=== PATIENT | female | born 1990 | race Caucasian/White ===

== ENCOUNTER 2020-03-24 21:07 | Inpatient (IN) | payer OTHER, SELFPAY ==
--- NOTE | 2020-03-24 21:17 | XR_ITS ---
WS: [id number] PORTABLE CHEST HISTORY: Positive Covid. Chest pain. COMPARISON: 05/30/2019 Lungs are slightly hyperinflated with mild haziness. No dense consolidation. No pleural effusion or p neumothorax. Cardiac size: Continued and increasing enlargement of the cardiac silhouette. Suspect pericardial eff usion. Mediastinum/Aorta: Normal mediastinum. No osseous abnormality seen. XR/XR chest 1V portable [id number] IMPRESSION: Increasing cardiac silhouette size. Suspect pericardial effusion. Mild interstitial haziness.
[2020-03-24 21:55] VITALS: BP 264/164; PULSE 120; RESP 22; TEMP 37.9; O2SAT 97; BMI 43.0
--- NOTE | 2020-03-24 22:52 | CTR_ITS ---
PROCEDURE INFORMATION: Exam: CT Head Without Contrast Exam date and time: 03/24/2020 11:12 PM Age: 29 years old Clinical indication: Pain; Headache; Patient HX: Covid +; Additional info: Elevated blood pressure TECHNIQUE: Imaging protocol: Computed tomography of the head without contrast. Radiation optimization: All CT scans at this facility use at least one of these dose optimization techniques: automated exposure control; mA and/or kV adjustment per patient size (includes targeted exams where dose is matched to clinical indication); or iterative reconstruction. COMPARISON: No relevant prior studies available. RADIATION DOSE METRICS: Total DLP (mGy-cm): 779.94 FINDINGS: Brain: Normal. No hemorrhage. Unremarkable white matter. No mass effect. Cerebral ventricles: No ventriculomegaly. Bones/joints: Unremarkable. No acute fracture. Paranasal sinuses: Visualized sinuses are unremarkable. No fluid levels. Mastoid air cells: Visualized mastoid air cells are well aerated. Soft tissues: Several partially calcified subcutaneous nodules are noted in the scalp that may reflect chronic sebaceous cysts. CT/CT head wo con* [id number] IMPRESSION: No acute intracranial abnormality. Radiation Dose CTDIVOL = (mGy): DLP = 779.94 (mGy-cm)
--- NOTE | 2020-03-24 22:54 | W.ED.SOB ---
Documented by User: MICHELLE Velasco 03/24/20 23:27 HPI - SOB/Dyspnea General: Chief Complaint: Shortness of Breath/Dyspnea Stated Complaint: +COVID (IN COVID TRIAGE ROOM) Time Seen by Provider: 03/24/20 22:52 History of Present Illness: HPI Narrative: Patient is a 29-year-old female comes to the ED with fever, cough and shortness of breath. Denies any past medical history. patient was tested for COVID on Saturday and it was positive. Today she has fever, body aches and her cough is mostly dry but occasionally she gets up some clear phlegm. Patient started having some diarrhea today. She describes her shortness of breath as chest tightness. Endorses having some wheezing. Patient also has elevated blood pressure. She denies any neurological symptoms such as vision changes, numbness weakness or tingling to extremities or face. She does say she has a mild headache currently. Associated symptoms: Reports diaphoresis and fever(s); Deny abdominal pain, chest pain, nausea, orthopnea, palpitations or vomiting Review of Systems Const: Reports: fever(s), body aches and diaphoresis; Denies: chills or fatigue Eyes: Denies: change in vision or eye discomfort ENMT: Denies: throat pain, odynophagia, nasal discharge or nasal congestion Card: Denies: chest pain, palpitations, edema, swelling of feet/ankles, dyspnea on exertion or orthopnea Resp: Reports: dyspnea, productive cough and wheezing; Denies: non-productive cough GI: Denies: abdominal pain, nausea, vomiting, diarrhea, constipation or hematochezia : Denies: flank pain, dysuria or hematuria Musc: Denies: neck pain, back pain or extremity swelling Skin/Breast: Denies: rash or new lesions Neuro: Reports: headache(s); Denies: numbness in extremities or weakness in extremities PFS ED PFSH: Medical History History of pre-eclampsia Hypertension Morbid obesity Family History Other CAD (coronary artery disease) Social History Smoking and tobacco status: current some day smoker Alcohol intake: never Substance/Drug Use: never Physical Exam Const: COMMON NORMALS: no acute distress, patient oriented x3 and alert GENERAL APPEARANCE: cooperative and diaphoretic HENMT: COMMON NORMALS: normocephalic HEAD & SCALP: normocephalic MOUTH: Normal oral and palatal mucosa present THROAT: posterior oropharynx normal and uvula midline Eye: COMMON NORMALS: Equal, round and reactive pupils present, EOMs intact bilaterally, conjunctivae normal and normal visual torres by confrontation CONJUNCTIVA: Yes conjunctivae normal PUPIL: Yes Equal, round and reactive pupils present Neck/C-Spine: COMMON NORMALS: supple GENERAL: Yes normal visual inspection Resp: COMMON NORMALS: normal respiratory effort, No retractions and No use of accessory muscles AUSCULTATION: crackles Laterality: right (Posterior base-light crackles heard) Cardio: COMMON NORMALS: regular rate, regular rhythm, S1 normal heart sound present, S2 normal heart sound present, No gallops present (Cardio), No clicks present (Cardio), No murmurs present (Cardio) and Peripheral pulses 2+ throughout RATE: regular rate RHYTHM: regular rhythm HEART SOUNDS: S1 normal heart sound present and S2 normal heart sound present PERIPHERAL PULSES: Peripheral pulses 2+ throughout GI: COMMON NORMALS: Normal to inspection, nondistended, normoactive bowel sounds present, Soft to palpation, non-tender and no masses PALPATION: Yes Soft to palpation : COMMON NORMALS: Yes no CVA tenderness BLADDER/KIDNEY EXAM: Yes no CVA tenderness Back/Pelvis: COMMON NORMALS: no CVA tenderness Extremity: COMMON NORMALS: normal to inspection, capillary refill normal and no pedal edema Neuro: COMMON NORMALS: patient oriented x3, CN's II-XII intact bilaterally, moves all extremities, no focal motor deficits and no sensory deficits noted SENSORIUM/ORIENTATION: Yes alert SENSORY EXAM: Yes extremities (intact) MOTOR EXAM: 5/5 motor strength present throughout Skin: COMMON NORMALS: no rashes or lesions noted NARRATIVE SKIN EXAM: Diaphoresis on face and skin on arms to the touch. GENERAL SKIN EXAM: no rashes or lesions noted Course Vital Signs: Vital signs: Vital Signs Temperature 100.3 F H 03/24/20 21:55 Pulse Rate 104 H 03/25/20 03:41 Respiratory Rate 20 H 03/25/20 03:41 Blood Pressure 188/106 03/25/20 03:41 Pulse Oximetry 91 03/25/20 03:41 MDM - SOB/Dyspnea MDM Narrative: Medical decision making narrative: I performed the initial history physical exam lab and imaging work-up of patient. I discussed patient case with Dr. Gaston and told him about patient's vitals of blood pressure 264/164, pulse 120, respirations 22, temp 100.3 and O2 sat 97% on room air. Dr. Gaston recommended that he take over patient care due to complexity and likely admission. Patient signed out to Dr. Gaston. Lab Data: Labs: Lab Results 03/24/20 03/24/20 03/24/20 Range/Units 00:15 23:30 23:33 WBC 8.8 (4.0-10.0) 10^3/ uL RBC 4.61 (4.1-5.3) 10^6/u L Hgb 11.5 (11.5-15.3) g/dL Hct 38.0 (37.0-47.0) % MCV 82.4 (81-99) fL MCH 24.9 L (28.0-34.0) pg MCHC 30.3 (30.0-36.0) g/dL RDW 15.3 H (12.1-15.1) % Plt Count 293 (130-400) 10^3/c mm MPV 11.2 H (7.4-10.4) fL Neut % (Auto) 80.4 % Lymph % (Auto) 9.1 % Summit % (Auto) 7.2 % Eos % (Auto) 2.3 % Baso % (Auto) 0.5 % Neut # (Auto) 7.11 (1.8-7.7) 10^3/u L Lymph # (Auto) 0.8 (0.8-4.8) 10^3/u L Summit # (Auto) 0.6 (0.2-0.9) 10^3/u L Eos # (Auto) 0.2 (0.0-0.8) 10^3/u L Baso # (Auto) 0.0 (0.0-0.1) 10^3/u L Nucleated RBC % (a uto) 0 % Nucleated RBCs # 0.0 /100WBC Fibrinogen (174-498) mg/dL D-Dimer (0-0.59) ug/mIFE U Specimen Type Arterial Sample Site Radial, right ABG pH 7.45 (7.35-7.45) ABG pCO2 32.4 L (35-45) mmHg ABG pO2 74.1 L (80.0-100.0) mmH g ABG HCO3 22.3 (22-26) mmol/L ABG Base Excess -1.1 (-2.0-2.0) mmol/ L Boris Test Pos Hematocrit 33.8 L (37-47) % O2 Delivery Device Room air FiO2 21.0 % Turner In ID Harkr Sodium (136-145) mmol/L Potassium (3.5-5.1) mmol/L Chloride (98-107) mmol/L Carbon Dioxide (22-29) mmol/L Anion Gap (5-19) BUN (6-20) mg/dL Creatinine (0.5-0.9) mg/dL GFR Calculation (90-130) mL/min Glucose (65-115) mg/dL Calculated Osmolal ity (285-295) mOsm/k g Lactic Acid (0.5-2.2) mmol/L Calcium (8.5-10.5) mg/dL Ferritin (15-150) ng/mL Total Bilirubin (0.15-1.2) mg/dL AST (0-32) U/L ALT (0-33) U/L Alkaline Phosphata se (35-105) IU/L Troponin T Baselin e 30 H (0-10) ng/L Troponin T 120 [place] (0-10) ng/L Delta Troponin T (0-10) ABS# NT-Pro-B Natriuret Pep (0-125) pg/mL Total Protein (6.6-8.7) g/dL Albumin (3.5-5.2) g/dL Globulin (1.3-4.6) g/dL Procalcitonin (0-0.5) ng/mL HCG, Qual (Negative) 03/24/20 03/24/20 03/24/20 Range/Units 23:33 23:33 23:33 WBC (4.0-10.0) 10^3/ uL RBC (4.1-5.3) 10^6/u L Hgb (11.5-15.3) g/dL Hct (37.0-47.0) % MCV (81-99) fL MCH (28.0-34.0) pg MCHC (30.0-36.0) g/dL RDW (12.1-15.1) % Plt Count (130-400) 10^3/c mm MPV (7.4-10.4) fL Neut % (Auto) % Lymph % (Auto) % Summit % (Auto) % Eos % (Auto) % Baso % (Auto) % Neut # (Auto) (1.8-7.7) 10^3/u L Lymph # (Auto) (0.8-4.8) 10^3/u L Summit # (Auto) (0.2-0.9) 10^3/u L Eos # (Auto) (0.0-0.8) 10^3/u L Baso # (Auto) (0.0-0.1) 10^3/u L Nucleated RBC % (a uto) % Nucleated RBCs # /100WBC Fibrinogen 418 (174-498) mg/dL D-Dimer 1.82 H (0-0.59) ug/mIFE U Specimen Type Sample Site ABG pH (7.35-7.45) ABG pCO2 (35-45) mmHg ABG pO2 (80.0-100.0) mmH g ABG HCO3 (22-26) mmol/L ABG Base Excess (-2.0-2.0) mmol/ L Boris Test Hematocrit (37-47) % O2 Delivery Device FiO2 % Turner In ID Sodium 136 (136-145) mmol/L Potassium 3.9 (3.5-5.1) mmol/L Chloride 102 (98-107) mmol/L Carbon Dioxide 21 L (22-29) mmol/L Anion Gap 16.9 (5-19) BUN 17 (6-20) mg/dL Creatinine 1.2 H (0.5-0.9) mg/dL GFR Calculation 52.7 L (90-130) mL/min Glucose 114 (65-115) mg/dL Calculated Osmolal ity 284 L (285-295) mOsm/k g Lactic Acid (0.5-2.2) mmol/L Calcium 8.7 (8.5-10.5) mg/dL Ferritin 64 (15-150) ng/mL Total Bilirubin 0.5 (0.15-1.2) mg/dL AST 17 (0-32) U/L ALT 26 (0-33) U/L Alkaline Phosphata se 81 (35-105) IU/L Troponin T Baselin e (0-10) ng/L Troponin T 120 [place] (0-10) ng/L Delta Troponin T (0-10) ABS# NT-Pro-B Natriuret Pep (0-125) pg/mL Total Protein 6.0 L (6.6-8.7) g/dL Albumin 4.0 (3.5-5.2) g/dL Globulin 2.0 (1.3-4.6) g/dL Procalcitonin 0.12 (0-0.5) ng/mL HCG, Qual Negative (Negative) 03/24/20 03/24/20 03/25/20 Range/Units 23:33 23:33 02:15 WBC (4.0-10.0) 10^3/ uL RBC (4.1-5.3) 10^6/u L Hgb (11.5-15.3) g/dL Hct (37.0-47.0) % MCV (81-99) fL MCH (28.0-34.0) pg MCHC (30.0-36.0) g/dL RDW (12.1-15.1) % Plt Count (130-400) 10^3/c mm MPV (7.4-10.4) fL Neut % (Auto) % Lymph % (Auto) % Summit % (Auto) % Eos % (Auto) % Baso % (Auto) % Neut # (Auto) (1.8-7.7) 10^3/u L Lymph # (Auto) (0.8-4.8) 10^3/u L [place] # (Auto) (0.2-0.9) 10^3/u L Eos # (Auto) (0.0-0.8) 10^3/u L Baso # (Auto) (0.0-0.1) 10^3/u L Nucleated RBC % (a uto) % Nucleated RBCs # /100WBC Fibrinogen (174-498) mg/dL D-Dimer (0-0.59) ug/mIFE U Specimen Type Sample Site ABG pH (7.35-7.45) ABG pCO2 (35-45) mmHg ABG pO2 (80.0-100.0) mmH g ABG HCO3 (22-26) mmol/L ABG Base Excess (-2.0-2.0) mmol/ L Boris Test Hematocrit (37-47) % O2 Delivery Device FiO2 % Turner In ID Sodium (136-145) mmol/L Potassium (3.5-5.1) mmol/L Chloride (98-107) mmol/L Carbon Dioxide (22-29) mmol/L Anion Gap (5-19) BUN (6-20) mg/dL Creatinine (0.5-0.9) mg/dL GFR Calculation (90-130) mL/min Glucose (65-115) mg/dL Calculated Osmolal ity (285-295) mOsm/k g Lactic Acid 0.8 (0.5-2.2) mmol/L Calcium (8.5-10.5) mg/dL Ferritin (15-150) ng/mL Total Bilirubin (0.15-1.2) mg/dL AST (0-32) U/L ALT (0-33) U/L Alkaline Phosphata se (35-105) IU/L Troponin T Baselin e (0-10) ng/L Troponin T 120 [place] 25.89 H (0-10) ng/L Delta Troponin T -4.11 L (0-10) ABS# NT-Pro-B Natriuret Pep 4025 H (0-125) pg/mL Total Protein (6.6-8.7) g/dL Albumin (3.5-5.2) g/dL Globulin (1.3-4.6) g/dL Procalcitonin (0-0.5) ng/mL HCG, Qual (Negative) Discharge Plan Discharge Patient Disposition: Placed in Observation Clinical Impression: Hypertensive urgency, COVID-19 Condition: Stable Referrals: Ce Grimaldo MD [Family Provider] - Sign Out Sign Out Data: Patient Sign Out occurred on 03/24/20 at 23:39. Patient's care was discussed, and care was transferred from to [facility]. Coding Level of Care Code ED Locomotive Mechanic for Chg Fwd Exam Comprehensive Documented by User: Helen Blake Marilin 03/25/20 03:53 HPI - SOB/Dyspnea General: Chief Complaint: Shortness of Breath/Dyspnea Stated Complaint: +COVID (IN COVID TRIAGE ROOM) Time Seen by Provider: 03/24/20 22:52 PFSH ED PFSH: Medical History History of pre-eclampsia Hypertension Morbid obesity Family History Other CAD (coronary artery disease) Social History Smoking and tobacco status: current some day smoker Alcohol intake: never Substance/Drug Use: never Course Vital Signs: Vital signs: Vital Signs Temperature 100.3 F H 03/24/20 21:55 Pulse Rate 104 H 03/25/20 03:41 Respiratory Rate 20 H 03/25/20 03:41 Blood Pressure 188/106 03/25/20 03:41 Pulse Oximetry 91 03/25/20 03:41 MDM - SOB/Dyspnea MDM Narrative: Medical decision making narrative: Eladio is a very nice 29-year-old female who comes in complaining of COVID symptoms. From a covert perspective the patient looks stable but she is severely hypertensive. She has market cardiomegaly on her chest x-ray and necessitated Cardene to get her blood pressure under control here. Patient is noncompliant with her blood pressure medicines at home. Because of this patient be admitted to the hospital and I have endorsed the case to Dr. Adan. He agrees to admit for further evaluation and care. Lab Data: Attestation: I reviewed the patient's lab results. Labs: Lab Results 03/24/20 03/24/20 03/24/20 Range/Units 00:15 23:30 23:33 WBC 8.8 (4.0-10.0) 10^3/ uL RBC 4.61 (4.1-5.3) 10^6/u L Hgb 11.5 (11.5-15.3) g/dL Hct 38.0 (37.0-47.0) % MCV 82.4 (81-99) fL MCH 24.9 L (28.0-34.0) pg MCHC 30.3 (30.0-36.0) g/dL RDW 15.3 H (12.1-15.1) % Plt Count 293 (130-400) 10^3/c mm MPV 11.2 H (7.4-10.4) fL Neut % (Auto) 80.4 % Lymph % (Auto) 9.1 % [place] % (Auto) 7.2 % Eos % (Auto) 2.3 % Baso % (Auto) 0.5 % Neut # (Auto) 7.11 (1.8-7.7) 10^3/u L Lymph # (Auto) 0.8 (0.8-4.8) 10^3/u L Summit # (Auto) 0.6 (0.2-0.9) 10^3/u L Eos # (Auto) 0.2 (0.0-0.8) 10^3/u L Baso # (Auto) 0.0 (0.0-0.1) 10^3/u L Nucleated RBC % (a uto) 0 % Nucleated RBCs # 0.0 /100WBC Fibrinogen (174-498) mg/dL D-Dimer (0-0.59) ug/mIFE U Specimen Type Arterial Sample Site Radial, right ABG pH 7.45 (7.35-7.45) ABG pCO2 32.4 L (35-45) mmHg ABG pO2 74.1 L (80.0-100.0) mmH g ABG HCO3 22.3 (22-26) mmol/L ABG Base Excess -1.1 (-2.0-2.0) mmol/ L Boris Test Pos Hematocrit 33.8 L (37-47) % O2 Delivery Device Room air FiO2 21.0 % Turner In ID Harkr Sodium (136-145) mmol/L Potassium (3.5-5.1) mmol/L Chloride (98-107) mmol/L Carbon Dioxide (22-29) mmol/L Anion Gap (5-19) BUN (6-20) mg/dL Creatinine (0.5-0.9) mg/dL GFR Calculation (90-130) mL/min Glucose (65-115) mg/dL Calculated Osmolal ity (285-295) mOsm/k g Lactic Acid (0.5-2.2) mmol/L Calcium (8.5-10.5) mg/dL Ferritin (15-150) ng/mL Total Bilirubin (0.15-1.2) mg/dL AST (0-32) U/L ALT (0-33) U/L Alkaline Phosphata se (35-105) IU/L Troponin T Baselin e 30 H (0-10) ng/L Troponin T 120 [place] (0-10) ng/L Delta Troponin T (0-10) ABS# NT-Pro-B Natriuret Pep (0-125) pg/mL Total Protein (6.6-8.7) g/dL Albumin (3.5-5.2) g/dL Globulin (1.3-4.6) g/dL Procalcitonin (0-0.5) ng/mL HCG, Qual (Negative) 03/24/20 03/24/20 03/24/20 Range/Units 23:33 23:33 23:33 WBC (4.0-10.0) 10^3/ uL RBC (4.1-5.3) 10^6/u L Hgb (11.5-15.3) g/dL Hct (37.0-47.0) % MCV (81-99) fL MCH (28.0-34.0) pg MCHC (30.0-36.0) g/dL RDW (12.1-15.1) % Plt Count (130-400) 10^3/c mm MPV (7.4-10.4) fL Neut % (Auto) % Lymph % (Auto) % [place] % (Auto) % Eos % (Auto) % Baso % (Auto) % Neut # (Auto) (1.8-7.7) 10^3/u L Lymph # (Auto) (0.8-4.8) 10^3/u L Summit # (Auto) (0.2-0.9) 10^3/u L Eos # (Auto) (0.0-0.8) 10^3/u L Baso # (Auto) (0.0-0.1) 10^3/u L Nucleated RBC % (a uto) % Nucleated RBCs # /100WBC Fibrinogen 418 (174-498) mg/dL D-Dimer 1.82 H (0-0.59) ug/mIFE U Specimen Type Sample Site ABG pH (7.35-7.45) ABG pCO2 (35-45) mmHg ABG pO2 (80.0-100.0) mmH g ABG HCO3 (22-26) mmol/L ABG Base Excess (-2.0-2.0) mmol/ L Boris Test Hematocrit (37-47) % O2 Delivery Device FiO2 % Turner In ID Sodium 136 (136-145) mmol/L Potassium 3.9 (3.5-5.1) mmol/L Chloride 102 (98-107) mmol/L Carbon Dioxide 21 L (22-29) mmol/L Anion Gap 16.9 (5-19) BUN 17 (6-20) mg/dL Creatinine 1.2 H (0.5-0.9) mg/dL GFR Calculation 52.7 L (90-130) mL/min Glucose 114 (65-115) mg/dL Calculated Osmolal ity 284 L (285-295) mOsm/k g Lactic Acid (0.5-2.2) mmol/L Calcium 8.7 (8.5-10.5) mg/dL Ferritin 64 (15-150) ng/mL Total Bilirubin 0.5 (0.15-1.2) mg/dL AST 17 (0-32) U/L ALT 26 (0-33) U/L Alkaline Phosphata se 81 (35-105) IU/L Troponin T Baselin e (0-10) ng/L Troponin T 120 [place] (0-10) ng/L Delta Troponin T (0-10) ABS# NT-Pro-B Natriuret Pep (0-125) pg/mL Total Protein 6.0 L (6.6-8.7) g/dL Albumin 4.0 (3.5-5.2) g/dL Globulin 2.0 (1.3-4.6) g/dL Procalcitonin 0.12 (0-0.5) ng/mL HCG, Qual Negative (Negative) 03/24/20 03/24/20 03/25/20 Range/Units 23:33 23:33 02:15 WBC (4.0-10.0) 10^3/ uL RBC (4.1-5.3) 10^6/u L Hgb (11.5-15.3) g/dL Hct (37.0-47.0) % MCV (81-99) fL MCH (28.0-34.0) pg MCHC (30.0-36.0) g/dL RDW (12.1-15.1) % Plt Count (130-400) 10^3/c mm MPV (7.4-10.4) fL Neut % (Auto) % Lymph % (Auto) % [place] % (Auto) % Eos % (Auto) % Baso % (Auto) % Neut # (Auto) (1.8-7.7) 10^3/u L Lymph # (Auto) (0.8-4.8) 10^3/u L [place] # (Auto) (0.2-0.9) 10^3/u L Eos # (Auto) (0.0-0.8) 10^3/u L Baso # (Auto) (0.0-0.1) 10^3/u L Nucleated RBC % (a uto) % Nucleated RBCs # /100WBC Fibrinogen (174-498) mg/dL D-Dimer (0-0.59) ug/mIFE U Specimen Type Sample Site ABG pH (7.35-7.45) ABG pCO2 (35-45) mmHg ABG pO2 (80.0-100.0) mmH g ABG HCO3 (22-26) mmol/L ABG Base Excess (-2.0-2.0) mmol/ L Boris Test Hematocrit (37-47) % O2 Delivery Device FiO2 % Turner In ID Sodium (136-145) mmol/L Potassium (3.5-5.1) mmol/L Chloride (98-107) mmol/L Carbon Dioxide (22-29) mmol/L Anion Gap (5-19) BUN (6-20) mg/dL Creatinine (0.5-0.9) mg/dL GFR Calculation (90-130) mL/min Glucose (65-115) mg/dL Calculated Osmolal ity (285-295) mOsm/k g Lactic Acid 0.8 (0.5-2.2) mmol/L Calcium (8.5-10.5) mg/dL Ferritin (15-150) ng/mL Total Bilirubin (0.15-1.2) mg/dL AST (0-32) U/L ALT (0-33) U/L Alkaline Phosphata se (35-105) IU/L Troponin T Baselin e (0-10) ng/L Troponin T 120 [place] 25.89 H (0-10) ng/L Delta Troponin T -4.11 L (0-10) ABS# NT-Pro-B Natriuret Pep 4025 H (0-125) pg/mL Total Protein (6.6-8.7) g/dL Albumin (3.5-5.2) g/dL Globulin (1.3-4.6) g/dL Procalcitonin (0-0.5) ng/mL HCG, Qual (Negative) Imaging Data^: CXR: Attestation: I personally reviewed and interpreted this imaging study as follows: My impression: Significant cardiomegaly but no evidence of definitive pulmonary vascular congestion or infiltrates. CT Head: Radiologist's impression: [place] [address] CT Scan Report Signed Patient: Lashon Contreras #: [id number] : 1990Acct#:[id number] Age/Sex: 29 / FADM Date: 03/24/20 Loc: ERRoom/Bed: Attending Dr: Ordering Provider/Ordering MD: Ascencion Castillo Date of Service: 03/24/20 Procedure(s): CT head wo con* [id number] Accession Number(s): [id number] Report Number: [id number] PROCEDURE INFORMATION: Exam: CT Head Without Contrast Exam date and time: 03/24/2020 11:12 PM Age: 29 years old Clinical indication: Pain; Headache; Patient HX: Covid +; Additional info: Elevated blood pressure TECHNIQUE: Imaging protocol: Computed tomography of the head without contrast. Radiation optimization: All CT scans at this facility use at least one of these dose optimization techniques: automated exposure control; mA and/or kV adjustment per patient size (includes targeted exams where dose is matched to clinical indication); or iterative reconstruction. COMPARISON: No relevant prior studies available. RADIATION DOSE METRICS: Total DLP (mGy-cm): 779.94 FINDINGS: Brain: Normal. No hemorrhage. Unremarkable white matter. No mass effect. Cerebral ventricles: No ventriculomegaly. Bones/joints: Unremarkable. No acute fracture. Paranasal sinuses: Visualized sinuses are unremarkable. No fluid levels. Mastoid air cells: Visualized mastoid air cells are well aerated. Soft tissues: Several partially calcified subcutaneous nodules are noted in the scalp that may reflect chronic sebaceous cysts. CT/CT head wo con* [id number] IMPRESSION: No acute intracranial abnormality. Radiation Dose CTDIVOL = (mGy): DLP = 779.94 (mGy-cm) Dictated By:Charley Van Signed By:Jono Van Date/Time:03/24/202336 DD/ 35 CT Chest: Radiologist's impression: [address] [address] [address] Scan Report Signed Patient: Eladio Contreras Unit #: [id number] : 1990 Age/Sex: 29 / F ADM Date: 03/24/20 Loc: ER Room/Bed: Attending Dr: Ordering Provider/Ordering MD: Helen Gaston DO Date of Service: 03/25/20 Procedure(s): CT angio chest PE protcl [id number] Accession Number(s): [id number] Report Number: [id number] PROCEDURE INFORMATION: Exam: CT Angiography Chest With Contrast Exam date and time: 03/25/2020 2:04 AM Age: 29 years old Clinical indication: Shortness of breath; Patient HX: Covid+; Additional info: Dyspnea, positive d-dimer TECHNIQUE: Imaging protocol: Computed tomographic angiography of the chest with intravenous contrast. 3D rendering (Not supervised by radiologist): MIP and/or 3D reconstructed images were created by the technologist. Radiation optimization: All CT scans at this facility use at least one of these dose optimization techniques: automated exposure control; mA and/or kV adjustment per patient size (includes targeted exams where dose is matched to clinical indication); or iterative reconstruction. Contrast material: VISI; Contrast volume: 78 ml; Contrast route: INTRAVENOUS (IV); COMPARISON: CTA Chest-Pulmonary Emb [id number] 04/16/2019 6:36 PM RADIATION DOSE METRICS: Total DLP (mGy-cm): 647.38 FINDINGS: Pulmonary arteries: Normal. No pulmonary emboli. Aorta: Unremarkable. No aortic aneurysm. No aortic dissection. Lungs: Scattered ground-glass infiltrates are present progress since previous exam. Pleural space: Bilateral small pleural effusions are seen, new since previous exam. Heart: Is enlarged. No cardiomegaly. Moderate amount of pericardial effusion is present increased since previous examination. Lymph nodes: Shotty mediastinal lymph nodes are present. Bones/joints: Unremarkable. No acute fracture. Soft tissues: Unremarkable. CT/CT angio chest PE protcl [id number] IMPRESSION: 1. Negative for pulmonary embolism. Negative for aortic aneurysm or dissection. 2. Ground-glass lung infiltrates showing progression consistent with COVID-19 pneumonia. 3. Moderate pericardial effusion increased since previous examination. 4. Small bilateral pleural effusions, new since previous examination. Radiation Dose CTDIVOL = (mGy): DLP = 647.38 (mGy-cm) Dictated By: Allyson Mattson Signed By: Allyson Mattson Signed Date/Time: 03/25/20347 DD/ 6 EKG Data^: EKG 1: Attestation: I personally reviewed and interpreted this EKG as follows: EKG Interpretation Date: 03/25/20 EKG interpretation time: 00:15 Interpretation: Sinus tachycardia at 101 beats a minute, LVH, T wave inversions in 1, aVL and V5 and V6. Normal axis, no blocks, normal intervals. EKG 2: Attestation: I personally reviewed and interpreted this EKG as follows: EKG Interpretation Date: 03/25/20 EKG interpretation time: 02:13 Interpretation: Normal sinus rhythm at 98 beats a minute, T wave inversions laterally including 1, aVL and V5 and V6. LVH. Discharge Plan Discharge Patient Disposition: Placed in Observation Clinical Impression: Hypertensive urgency, COVID-19 Condition: Stable Referrals: Ce Grimaldo MD [Family Provider] - Sign Out Sign Out Data: Patient Sign Out occurred on 03/24/20 at 23:39. Patient's care was discussed, and care was transferred from to Helen Gaston. 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
--- NOTE | 2020-03-24 23:17 | ECG_ITS ---
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 Measurements Intervals [place] Rate: 101 P: 30 NE: 182 QRS: 5 QRSD: 98 T: 169 QT: 355 QTc: 461 Interpretive Statements SINUS TACHYCARDIA LEFT ATRIAL ENLARGEMENT [-0.15mV P WAVE IN V1/V2] MODERATE T-WAVE ABNORMALITY, CONSIDER LATERAL ISCHEMIA [-0.1+ mV T WAVE IN I/aVL/V5/V6] Compared to ECG 05/30/2019 12:35:50 T-wave abnormality now present Possible ischemia now present Left ventricular hypertrophy no longer present ST (T wave) deviation no longer present Electronically Signed On 03-25-2020 18:52:41 CDT by Elias Reid M.D. [id number]
[2020-03-24] MEDS: sodium chloride 0.9% 1,000 ML 999 ML IV (23:41)
[2020-03-24] MEDS: acetaminophen 500 mg Tablet 1000 MG PO (23:41)
[2020-03-24 23:48] LABS: Basophils % 0.5 %; Eosinophils # 0.2 10^3/uL (0.0-0.8); Eosinophils % 2.3 %; Hemoglobin 11.5 g/dL (11.5-15.3); Lymphocytes # 0.8 10^3/uL (0.8-4.8); Lymphocytes % 9.1 %; Mean Corpuscular HGB Conc 30.3 g/dL (30.0-36.0); Mean Corpuscular Hemoglobin 24.9 pg (28.0-34.0); Mean Corpuscular Volume 82.4 fL (81-99); Mean Platelet Volume 11.2 fL (7.4-10.4); Monocytes # 0.6 10^3/uL (0.2-0.9); Monocytes % 7.2 %; Neutrophils # 7.11 10^3/uL (1.8-7.7); Neutrophils % 80.4 %; Nucleated Red Blood Cells % 0 %; Platelet Count 293 10^3/cmm (130-400); Red Blood Count 4.61 10^6/uL (4.1-5.3); Red Cell Distribution Width 15.3 % (12.1-15.1); White Blood Count 8.8 10^3/uL (4.0-10.0)
[2020-03-24 23:54] LABS: HCG, Serum Qual Negative (Negative)
[2020-03-24] MEDS: labetalol 5 mg/mL SDV 20mL 10 MG IVP (23:54)
[2020-03-25] VITALS (84 sets, daily range): BP systolic 113–203; BP diastolic 70–154; PULSE 77–125; RESP 13–33; TEMP 36.7–37.2; O2SAT 90–96; BMI 43.3
[2020-03-25 00:03] LABS: Lactic Sepsis W/Reflex 0.8 mmol/L (0.5-2.2)
[2020-03-25 00:05] LABS: Troponin(5th) Baseline 30 ng/L (0-10)
[2020-03-25 00:11] LABS: Fibrinogen 418 mg/dL (174-498)
[2020-03-25 00:13] LABS: D Dimer 1.82 ug/mIFEU (0-0.59)
[2020-03-25 00:14] LABS: Procalcitonin 0.12 ng/mL (0-0.5)
--- NOTE | 2020-03-25 00:16 | CTR_ITS ---
PROCEDURE INFORMATION: Exam: CT Angiography Chest With Contrast Exam date and time: 03/25/2020 2:04 AM Age: 29 years old Clinical indication: Shortness of breath; Patient HX: Covid+; Additional info: Dyspnea, positive d-dimer TECHNIQUE: Imaging protocol: Computed tomographic angiography of the chest with intravenous contrast. 3D rendering (Not supervised by radiologist): MIP and/or 3D reconstructed images were created by the technologist. Radiation optimization: All CT scans at this facility use at least one of these dose optimization techniques: automated exposure control; mA and/or kV adjustment per patient size (includes targeted exams where dose is matched to clinical indication); or iterative reconstruction. Contrast material: VISI; Contrast volume: 78 ml; Contrast route: INTRAVENOUS (IV); COMPARISON: CTA Chest-Pulmonary Emb [id number] 04/16/2019 6:36 PM RADIATION DOSE METRICS: Total DLP (mGy-cm): 647.38 FINDINGS: Pulmonary arteries: Normal. No pulmonary emboli. Aorta: Unremarkable. No aortic aneurysm. No aortic dissection. Lungs: Scattered ground-glass infiltrates are present progress since previous exam. Pleural space: Bilateral small pleural effusions are seen, new since previous exam. Heart: Is enlarged. No cardiomegaly. Moderate amount of pericardial effusion is present increased since previous examination. Lymph nodes: Shotty mediastinal lymph nodes are present. Bones/joints: Unremarkable. No acute fracture. Soft tissues: Unremarkable. CT/CT angio chest PE protcl [id number] IMPRESSION: 1. Negative for pulmonary embolism. Negative for aortic aneurysm or dissection. 2. Ground-glass lung infiltrates showing progression consistent with COVID-19 pneumonia. 3. Moderate pericardial effusion increased since previous examination. 4. Small bilateral pleural effusions, new since previous examination. Radiation Dose CTDIVOL = (mGy): DLP = 647.38 (mGy-cm)
[2020-03-25 00:25] LABS: Alanine Aminotransferase 26 U/L (0-33); Alkaline Phosphatase 81 IU/L (35-105); Anion Gap 16.9 (5-19); Aspartate Amino Transferase 17 U/L (0-32); Blood Urea Nitrogen 17 mg/dL (6-20); Calcium 8.7 mg/dL (8.5-10.5); Carbon Dioxide 21 mmol/L (22-29); Chloride 102 mmol/L (98-107); Ferritin 64 ng/mL (15-150); Glomerular Filtration Rate 52.7 mL/min (90-130); Glucose 114 mg/dL (65-115); Osmolality Calculated 284 mOsm/kg (285-295); Potassium 3.9 mmol/L (3.5-5.1); Sodium 136 mmol/L (136-145); Total Bilirubin 0.5 mg/dL (0.15-1.2)
[2020-03-25 00:28] LABS: ABG PCO2 32.4 mmHg (35-45); ABG PH Result 7.45 (7.35-7.45); Arterial Blood Gas Hematocrit 33.8 % (37-47); Base Excess ABG -1.1 mmol/L (-2.0-2.0); Blood Gas Allen Test Pos; Blood Gas Operator Identificat HARKR; Blood Gas Sample Site Radial, right; Blood Gas Sample Type Arterial; HCO3 ABG 22.3 mmol/L (22-26); Oxygen Device ROOM AIR; PO2 ABG 74.1 mmHg (80.0-100.0)
[2020-03-25 00:54] LABS: NT Pro B Type Natriuretic Pept 4025 pg/mL (0-125)
--- NOTE | 2020-03-25 01:17 | ECG_ITS ---
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 Measurements Intervals [place] Rate: 98 P: 17 ND: 164 QRS: -1 QRSD: 97 T: 137 QT: 364 QTc: 466 Interpretive Statements SINUS RHYTHM LEFT ATRIAL ENLARGEMENT [-0.15mV P WAVE IN V1/V2] LEFT VENTRICULAR HYPERTROPHY AND ST-T CHANGE [VOLTAGE CRITERIA PLUS ST/T ABNORMALITY] Compared to ECG 03/25/2020 00:15:25 Left ventricular hypertrophy now present ST (T wave) deviation now present Sinus tachycardia no longer present T-wave abnormality no longer present Possible ischemia no longer present Electronically Signed On 03-25-2020 19:37:38 CDT by Elias Reid M.D. [id number]
[2020-03-25] MEDS: nicardipine 20 MG/200 ML PREMIX 50 MG IV (01:22)
--- NOTE | 2020-03-25 02:16 | PM.HP ---
Providers/Chief Complaint Chief Complaint: +COVID (IN COVID TRIAGE ROOM) History of Present Illness Eladio Contreras is a 29 year old female G3, P3, history of preeclampsia, hypertension, prediabetic, recently purposely lost 30 pounds, who presents to [facility] due to fatigue, malaise, shortness of breath with exertion. 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 Patient states that she was diagnosed with hypertension, was on lisinopril, but she lost 30 pounds, and stopped taking the medication. Review of Systems Const: Reports: fever(s), chills, body aches and malaise; Denies: fatigue Eyes: Denies: change in vision or blurry vision ENMT: Denies: nasal congestion Card: Denies: chest pain or palpitations Resp: Denies: dyspnea, productive cough, non-productive cough or wheezing GI: Denies: abdominal pain, nausea, vomiting, hematemesis, diarrhea, constipation, hematochezia or melena : Denies: flank pain, dysuria or urinary frequency Musc: Denies: neck pain or back pain Skin/Breast: Denies: rash Neuro: Denies: headache(s), dizziness or vertigo Psych: Denies: anxiety or depression Endo: Denies: polyuria or polydipsia Medications/Allergies Allergies Allergy/AdvReac Type Severity Reaction Status Date / Time No Known Allergies Allergy Verified 03/24/20 23:41 PFSH Acute PFSH: Medical History History of pre-eclampsia Hypertension Morbid obesity Family History Other CAD (coronary artery disease) Social History Smoking and tobacco status: current some day smoker Alcohol intake: never Substance/Drug Use: never Vitals/I&O/Wt Last Vital Signs Temp 100.3 F H 03/24/20 21:55 Pulse 97 03/25/20 01:41 Resp 21 H 03/25/20 01:41 BP 170/83 03/25/20 01:41 Pulse Ox 93 03/25/20 01:41 Weight last 48 hrs Weight 136.078 kg Physical Exam Const: COMMON NORMALS: no acute distress and patient oriented x3 GENERAL APPEARANCE: cooperative and comfortable HENMT: COMMON NORMALS: normocephalic HEAD & SCALP: normocephalic Eye: COMMON NORMALS: Equal, round and reactive pupils present GENERAL EYE: appearance normal, both eyes and all related structures PUPIL: Yes Equal, round and reactive pupils present Neck/C-Spine: COMMON NORMALS: full ROM, no lymphadenopathy, no JVD and Thyroid normal THYROID: Thyroid normal Lymph: LYMPHATIC: no lymphadenopathy noted Resp: COMMON NORMALS: normal respiratory effort, No retractions, No use of accessory muscles and clear to auscultation bilaterally AUSCULTATION: clear to auscultation bilaterally Cardio: COMMON NORMALS: no JVD, regular rate, regular rhythm, S1 normal heart sound present, S2 normal heart sound present, No gallops present (Cardio), No clicks present (Cardio) and No murmurs present (Cardio) RATE: regular rate RHYTHM: regular rhythm HEART SOUNDS: S1 normal heart sound present and S2 normal heart sound present GI: COMMON NORMALS: Normal to inspection, nondistended, normoactive bowel sounds present, Soft to palpation, non-tender and No hepatosplenomegaly present PALPATION: Yes Soft to palpation and Yes No hepatosplenomegaly present Extremity: COMMON NORMALS: normal to inspection, full ROM and no pedal edema Neuro: COMMON NORMALS: patient oriented x3, CN's II-XII intact bilaterally, moves all extremities and no focal motor deficits Psych: COMMON NORMALS: mental status grossly normal, Normal thought process present and cooperative THOUGHT PROCESS: Normal thought process present Data : 03/24/20 23:33 03/24/20 23:33 Micro: Microbiology 03/24/20 23:33 Blood Culture - Preliminary Blood SPECIMEN COLLECTED A&P Assessment and plan (1) Hypertensive urgency: -Admit to ICU as she is on a Cardene drip -Transition off Cardene drip -Start chlorthalidone 25 mg daily -Add blood pressure medications as tolerated -Cardiac echocardiogram ordered, CT of the chest ordered -BNP 4025 -Baseline troponin 30, monitor troponins, monitor EKGs, monitor telemetry Status: Acute (2) COVID-19: -Not requiring oxygen, does have a temperature 100.3 -CT of the chest ordered -Monitor for fevers, monitor respiratory status Status: Acute (3) Acute kidney injury: -Second hypertensive urgency Status: Acute (4) Morbid obesity: Status: Acute (5) Hypertension: Status: Acute (6) No pertinent past surgical history: Status: Acute Additional A&P Information Full code Lovenox for DVT prophylaxis Attestations Medical Necessity Statement*: Patient requires hospitalization, outpatient with observation, for hypertensive urgency, COVID-19 positive Coding Level of Care Code 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
[2020-03-25] MEDS: iodixanol 320 mg/mL 100mL Btl IV (02:34)
[2020-03-25 02:48] LABS: Troponin 5 2HR 25.89 ng/L (0-10)
[2020-03-25 02:50] LABS: Troponin 5 2HR Delta -4.11 ABS# (0-10)
--- NOTE | 2020-03-25 07:26 | USCV_ITS ---
Eladio Contreras Age: 29 Gender: F : 1990 Exam Date: 03/25/2020 12:47 Ordering Phys: Josh Adan MD Technologist: Ten Romano Exam Location: [facility] – [place] Indication: SOB BP: 182 / 92 HR: 106 Rhythm: Sinus Technical Quality: Adequate MEASUREMENTS (Male / Female) Normal Values 2D ECHO LV Diastolic Diameter PLAX 4.7 cm 4.2 - 5.9 / 3.9 - 5.3 cm LV Systolic Diameter PLAX 3.4 cm IVS Diastolic Thickness 1.8 cm 0.6 - 1.0 / 0.6 - 0.9 cm IVS Systolic Thickness 2.2 cm LVPW Diastolic Thickness 1.3 cm 0.6 - 1.0 / 0.6 - 0.9 cm LVPW Systolic Thickness 2.2 cm LVOT Diameter 2.0 cm LV Ejection Fraction 2D Teich 43.0 % LV Ejection Fraction MOD 2C 63.9 % LV Ejection Fraction 2C AL 63.6 % LA Diameter 4.5 cm LA Width 4.8 cm LA Height 5.6 cm RA Width 3.8 cm RA Height 5.2 cm Aorta at Sinotubular Diameter 1.1 cm M-MODE LV Diastolic Diameter MM 5.3 cm 4.2 - 5.9 / 3.9 - 5.3 cm LV Systolic Diameter MM 3.0 cm LV Ejection Fraction MM Teich 73.1 % IVS Diastolic Thickness MM 2.0 cm 0.6 - 1.0 / 0.6 - 0.9 cm IVS Systolic Thickness MM 2.5 cm LVPW Diastolic Thickness MM 2.0 cm 0.6 - 1.0 / 0.6 - 0.9 cm LVPW Systolic Thickness MM 2.8 cm RV Diastolic Diameter MM 2.0 cm Aortic Annulus Diameter 3.8 cm LA Ao Ratio MM 1.3 MV E Point Septal Separation 1.1 cm DOPPLER AV Peak Velocity 225.0 cm/s MV Area PHT 6.7 cm squared Mitral E to A Ratio 1.0 MV E' Velocity 60.5 cm/s Mitral E to MV E' Ratio 21.8 Mitral E to LV E' Lateral Ratio 20.2 Mitral E to LV E' Septal Ratio 24.0 TR Peak Velocity 141.0 cm/s TR Peak Gradient 8.0 mmHg TV Peak E Velocity 93.0 cm/s Right Atrial Pressure 3.0 mmHg Pulmonary Artery Systolic Pressu 11.0 mmHg FINDINGS Left Ventricle Normal left ventricular size and systolic function with no regional wall motion abnormalities. Left ventricular ejection fraction is estimated at 70%. Normal diastolic function. Right Ventricle Normal right ventricular size and systolic function. Right ventricular systolic pressure 11 mmHg. Right Atrium Normal right atrial size. Left Atrium Normal left atrial size. Mitral Valve Structurally normal mitral valve. No mitral valve stenosis. No significant mitral valve regurgitation. Aortic Valve Aortic valve not well visualized. No aortic valve stenosis. No aortic valve regurgitation. Tricuspid Valve Structurally normal tricuspid valve. No tricuspid valve stenosis. Trace tricuspid valve regurgitation. Pulmonic Valve Pulmonic valve not well visualized. No pulmonary valve stenosis. No pulmonary valve regurgitation. Pericardium Small to moderate circumferential pericardial effusion. No evidence of hemodynamic compromise. Aorta Normal size aortic root and proximal ascending aorta. CONCLUSIONS 1. Normal left ventricular size and systolic function with no regional wall motion abnormalities. Left ventricular ejection fraction is estimated at 70%. Normal diastolic function. 2. Normal pulmonary artery pressure. 3. Small to moderate circumferential pericardial effusion. No evidence of hemodynamic compromise. 4. No prior similar studies to compare. Radha Dunn MD (Electronically Signed) Final Date: 25 March 2020 19:03 S
[2020-03-25] MEDS: nicardipine 20 MG/200 ML PREMIX 75 MG IV (08:07)
[2020-03-25 08:09] LABS: Estmated Average Glucose 126
[2020-03-25] MEDS: acetaminophen 325 mg Tablet 650 MG PO (08:18)
[2020-03-25] MEDS: enoxaparin 40 mg/0.4 mL Syringe SUBCUT (08:18)
[2020-03-25] MEDS: chlorthalidone 25 mg Tablet PO (08:20)
[2020-03-25] MEDS: nicardipine 20 MG/200 ML PREMIX 150 MG IV (09:53)
[2020-03-25] MEDS: albuterol 8 gm MDI 1 PUFF INHALATION ×2 (10:03→20:32)
[2020-03-25] MEDS: HYDROcodone-acetaminophen 5-325 mg Tablet 1 TAB PO ×3 (10:20→19:56)
[2020-03-25] MEDS: amlodipine 10 mg Tablet PO (14:07)
--- NOTE | 2020-03-25 15:05 | PC.RESP ---
Smoking Cessation sent to patient.
[2020-03-25] MEDS: metoprolol tartrate 50 mg Tablet PO (17:00)
[2020-03-25] MEDS: lisinopril 10 mg Tablet PO (18:42)
--- NOTE | 2020-03-25 19:08 | P.PN_ITS ---
Subjective Subjective: Interval history: Chart reviewed, remains on nicardipine drip for though weaning this down as blood pressure is improving. We will add oral antihypertensives to transition off drip. Initially complained of headache earlier this morning, resolved by this afternoon. Currently on 2 L nasal cannula and seems to be maintaining her saturations in the low 90s on room air though she reports desaturating when laying down flat. Echo done earlier this afternoon. Medications: Reviewed: Yes Medication Review Details: Active Medications Generic Name Dose Route Start Last Admin Trade Name Freq PRN Reason Stop Dose Admin Acetaminophen 650 mg 03/25/20 07:26 03/25/20 08:18 Tylenol PO 650 mg Q6H PRN Administration Mild/Mod Pain Or Temp >/= 101 Hydrocodone Bitart /Acetaminophen 1 tab 03/25/20 09:56 03/25/20 15:36 [place] 5-325 Mg PO 1 tab Q4H PRN Administration Moderate Pain or headache Albuterol Sulfate 1 puff 03/25/20 07:26 03/25/20 10:03 Ventolin INHALATION 1 puff Q4H.RESPIRATORY P RN Administration sob Amlodipine Besylat e 10 mg 03/25/20 14:00 03/25/20 14:07 Norvasc PO 10 mg DAILY CON Administration Chlorthalidone 25 mg 03/25/20 08:00 03/25/20 08:20 Thalitone PO 25 mg Q24H CON Administration Enoxaparin Sodium 40 mg 03/25/20 07:26 03/25/20 08:18 Lovenox SUBCUT 40 mg Q24H CON Administration Nicardipine/Sodium Chloride 20 mg in 200 mls @ 0 mls/hr 03/25/20 01:15 03/25/20 09:53 Cardene IV 15 mg/hr .Q0M CON 150 mls/hr Administration Protocol Per Protocol Nicardipine HCl 25 mg/ Sodium 250 mls @ 0 mls/h r 03/25/20 11:30 03/25/20 15:23 Chloride IV Infused .Q0M CON Titration Protocol Per Protocol Nicardipine HCl 50 mg/ Sodium 250 mls @ 0 mls/h r 03/25/20 13:30 03/25/20 17:44 Chloride IV 5 ml/hr .Q0M CON 5 mls/hr Administration Protocol Per Protocol Lisinopril 10 mg 03/25/20 18:30 03/25/20 18:42 Prinivil PO 10 mg DAILY CON Administration Metoprolol Tartrat e 50 mg 03/25/20 18:00 03/25/20 17:00 Lopressor PO 50 mg BID CON Administration Ondansetron HCl 4 mg 03/25/20 09:56 Zofran IVP Q6H PRN NAUSEA AND VOMITI NG No Known Allergies Allergy (Verified 03/24/20 23:41) Vitals/I&O/Wt Last Vital Signs Temp 98.5 F 03/25/20 15:45 Pulse 88 03/25/20 18:45 Resp 24 H 03/25/20 18:45 BP 154/101 03/25/20 18:45 Pulse Ox 91 03/25/20 18:45 03/25/20 03/25/20 03/25/20 06:59 14:59 22:59 Intake Total 190.833 / 542.766 6377.417 / 0969.302 3954.375 / 3463.792 Balance 190.833 / 124.011 2907.417 / 9550.777 8981.375 / 3463.792 Weight last 48 hrs Weight 136.94 kg Weight 136.078 kg Physical Exam Const: COMMON NORMALS: no acute distress, patient oriented x3 and alert GENERAL APPEARANCE: cooperative and comfortable NUTRITIONAL APPEARANCE: obese morbidly obese ORIENTATION/CONSCIOUSNESS: Yes awake HENMT: COMMON NORMALS: normocephalic, atraumatic, hearing grossly normal bilaterally and moist oral mucous membranes HEAD & SCALP: normocephalic and atraumatic Eye: COMMON NORMALS: Equal, round and reactive pupils present, EOMs intact bilaterally and conjunctivae normal CONJUNCTIVA: Yes conjunctivae normal PUPIL: Yes Equal, round and reactive pupils present Neck/C-Spine: COMMON NORMALS: full ROM GENERAL: Yes normal visual inspection and Yes trachea midline OTHER: -short, thick neck Resp: COMMON NORMALS: normal respiratory effort, No retractions, No use of accessory muscles and clear to auscultation bilaterally EFFORT & INSPECTION: Yes able to speak in complete sentences, Yes symmetric chest movement and No tachypneic AUSCULTATION: clear to auscultation bilaterally OTHER: -on 2 L NC Cardio: COMMON NORMALS: regular rate, regular rhythm, S1 normal heart sound present, S2 normal heart sound present and No murmurs present (Cardio) RATE: regular rate RHYTHM: regular rhythm HEART SOUNDS: S1 normal heart sound present and S2 normal heart sound present OTHER: -hypertensive GI: COMMON NORMALS: Normal to inspection, nondistended, normoactive bowel sounds present, Soft to palpation and non-tender PALPATION: Yes Soft to palpation Extremity: COMMON NORMALS: normal to inspection, full ROM and no clubbing, cyanosis or edema; negative for no pedal edema Neuro: COMMON NORMALS: patient oriented x3, moves all extremities, no focal motor deficits and no sensory deficits noted SENSORIUM/ORIENTATION: Yes alert Psych: COMMON NORMALS: mental status grossly normal, Normal thought process present, cooperative, normal affect and speech normal SPEECH: Yes normal speech THOUGHT PROCESS: Normal thought process present Skin: COMMON NORMALS: no rashes or lesions noted, no jaundice, no petechiae and no mottling GENERAL SKIN EXAM: no rashes or lesions noted Data : 03/24/20 23:33 03/24/20 23:33 Micro: Microbiology 03/24/20 23:33 Blood Culture - Preliminary Blood SPECIMEN COLLECTED A&P Assessment and plan (1) COVID-19: -found to be COVID-19 positive, 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) -minimal symptoms, need for minimal supplemental oxygen support currently, wean off as tolerated -continue to monitor respiratory status -isolation precautions -minimal elevation in inflammatory markers -imaging consistent with COVID-19 pneumonia Status: Acute (2) Hypertensive urgency: -CT head unremarkable -on nicardipine drip; wean as tolerated -started on chlorthalidone, amlodipine, JAGDEEP inhibitor and diuretic -Noted pericardial effusion and bilateral pleural effusions likely secondary to hypertensive urgency -Echo: EF=70%, no RWMA, small to moderate pericardial effusion (no evidence of hemodynamic compromise) -has known hx of HTN and has had issues with pre-eclampsia during -may need to be evaluated for renovascular HTN Status: Acute (3) Acute kidney injury: -likely secondary to elevated BP -continue to monitor renal function, avoid nephrotoxins, renally dose meds -RAMSEY on CKD stage 2; baseline Cr wnl Status: Acute (4) Morbid obesity: -BMI-43 kg/m2 Status: Chronic Additional A&P Information -Chronic smoker; expresses desire to quit smoking -cardiac diet as tolerated -DVT ppx with lovenox -Dispo: home -Code status: FULL code Attestations Medical Necessity Statement*: Patient requires hospitalization for continued management of COVID-19 infection as well as hypertensive urgency requiring multiple antihypertensive medications including nicardipine drip. Time Spent in Patient Care: Greater than 35 minutes (>than 50% of time spent in counselling and/or direct pt care on unit) . 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
[2020-03-26] VITALS (43 sets, daily range): BP systolic 131–179; BP diastolic 72–125; PULSE 70–95; RESP 7–30; TEMP 36.7; O2SAT 90–100
[2020-03-26 05:03] LABS: Basophils % 0.5 %; Eosinophils # 0.1 10^3/uL (0.0-0.8); Eosinophils % 2.1 %; Hematocrit 35.4 % (37.0-47.0); Hemoglobin 10.5 g/dL (11.5-15.3); Lymphocytes % 16.9 %; Mean Corpuscular HGB Conc 29.7 g/dL (30.0-36.0); Mean Corpuscular Hemoglobin 24.3 pg (28.0-34.0); Mean Corpuscular Volume 81.9 fL (81-99); Mean Platelet Volume 11.4 fL (7.4-10.4); Monocytes # 0.5 10^3/uL (0.2-0.9); Monocytes % 8.6 %; Neutrophils # 4.14 10^3/uL (1.8-7.7); Neutrophils % 71.6 %; Nucleated Red Blood Cells % 0 %; Platelet Count 276 10^3/cmm (130-400); Red Blood Count 4.32 10^6/uL (4.1-5.3); Red Cell Distribution Width 15.2 % (12.1-15.1); White Blood Count 5.8 10^3/uL (4.0-10.0)
[2020-03-26 05:44] LABS: Alanine Aminotransferase 24 U/L (0-33); Albumin Level 3.5 g/dL (3.5-5.2); Alkaline Phosphatase 67 IU/L (35-105); Anion Gap 12.6 (5-19); Aspartate Amino Transferase 19 U/L (0-32); C Reactive Protein 20.6 mg/L (0.0-4.9); Carbon Dioxide 25 mmol/L (22-29); Chloride 102 mmol/L (98-107); Globulin 2.4 g/dL (1.3-4.6); Glomerular Filtration Rate 52.7 mL/min (90-130); Glucose 104 mg/dL (65-115); Phosphorus 4.5 mg/dL (2.5-4.5); Potassium 3.6 mmol/L (3.5-5.1); Sodium 136 mmol/L (136-145); Total Bilirubin 0.3 mg/dL (0.15-1.2); Total Protein 5.9 g/dL (6.6-8.7)
[2020-03-26 05:56] LABS: Procalcitonin 0.12 ng/mL (0-0.5)
[2020-03-26 06:08] LABS: Chol HDL Ratio 3.31 mg/dL (0.0-4.40); Cholesterol 119 mg/dL (0-200); HDL Cholesterol 36 mg/dL (60-100); LDL Cholesterol Calculated 67 mg/dL (50-129); LDL HDL Ratio 1.86 RATIO (0.00-3.22); Triglycerides 82 mg/dL (0-150)
[2020-03-26 06:28] LABS: Blood Urea Nitrogen 18 mg/dL (6-20); Calcium 8.5 mg/dL (8.5-10.5); Osmolality Calculated 284 mOsm/kg (285-295)
[2020-03-26] MEDS: albuterol 8 gm MDI 1 PUFF INHALATION ×2 (09:28→13:42)
[2020-03-26] MEDS: amlodipine 10 mg Tablet PO (10:04)
[2020-03-26] MEDS: metoprolol tartrate 50 mg Tablet PO ×2 (10:04→18:11)
[2020-03-26] MEDS: lisinopril 10 mg Tablet PO ×2 (10:04→21:24)
[2020-03-26] MEDS: enoxaparin 40 mg/0.4 mL Syringe SUBCUT (10:04)
[2020-03-26] MEDS: chlorthalidone 25 mg Tablet PO (10:04)
--- NOTE | 2020-03-26 14:43 | P.PN_ITS ---
Subjective Subjective: Interval history: Weaned off nicardipine drip yesterday evening, continues to have some spikes in her blood pressure, significant shortness of breath with exertion, continues to require some supplemental oxygen support. Ambulated in the hallway but got winded fairly quickly, maintained her oxygen saturation well though. Still quite fatigued. Medications: Reviewed: Yes Medication Review Details: Active Medications Generic Name Dose Route Start Last Admin Trade Name Freq PRN Reason Stop Dose Admin Acetaminophen 650 mg 03/25/20 07:26 03/25/20 08:18 Tylenol PO 650 mg Q6H PRN Administration Mild/Mod Pain Or Temp >/= 101 Hydrocodone Bitart /Acetaminophen 1 tab 03/25/20 09:56 03/25/20 19:56 [place] 5-325 Mg PO 1 tab Q4H PRN Administration Moderate Pain or headache Albuterol Sulfate 1 puff 03/25/20 07:26 03/26/20 13:42 Ventolin INHALATION 1 puff Q4H.RESPIRATORY P RN Administration sob Amlodipine Besylat e 10 mg 03/25/20 14:00 03/26/20 10:04 Norvasc PO 10 mg DAILY CON Administration Chlorthalidone 25 mg 03/25/20 08:00 03/26/20 10:04 Thalitone PO 25 mg Q24H CON Administration Enoxaparin Sodium 40 mg 03/25/20 07:26 03/26/20 10:04 Lovenox SUBCUT 40 mg Q24H CON Administration Nicardipine/Sodium Chloride 20 mg in 200 mls @ 0 mls/hr 03/25/20 01:15 03/25/20 09:53 Cardene IV 15 mg/hr .Q0M CON 150 mls/hr Administration Protocol Per Protocol Nicardipine HCl 25 mg/ Sodium 250 mls @ 0 mls/h r 03/25/20 11:30 03/25/20 15:23 Chloride IV Infused .Q0M CON Titration Protocol Per Protocol Nicardipine HCl 50 mg/ Sodium 250 mls @ 0 mls/h r 03/25/20 13:30 03/25/20 22:00 Chloride IV 0 ml/hr .Q0M CON 0 mls/hr Titration Protocol Per Protocol Lisinopril 20 mg 03/27/20 09:00 Prinivil PO DAILY CON Metoprolol Tartrat e 50 mg 03/25/20 18:00 03/26/20 10:04 Lopressor PO 50 mg BID CON Administration Ondansetron HCl 4 mg 03/25/20 09:56 Zofran IVP Q6H PRN NAUSEA AND VOMITI NG No Known Allergies Allergy (Verified 03/24/20 23:41) Vitals/I&O/Wt Last Vital Signs Temp 98.0 F 03/26/20 09:00 Pulse 81 03/26/20 14:00 Resp 25 H 03/26/20 14:00 BP 146/86 03/26/20 14:00 Pulse Ox 97 03/26/20 14:00 03/25/20 03/26/20 03/26/20 22:59 06:59 14:59 Intake Total 1820.708 / 3785.125 200 / 3985.125 Output Total 400 / 400 Balance 1420.708 / 3385.125 200 / 3585.125 Weight last 48 hrs Weight 136.94 kg Weight 136.078 kg Physical Exam Const: COMMON NORMALS: no acute distress, patient oriented x3 and alert GENERAL APPEARANCE: cooperative and comfortable NUTRITIONAL APPEARANCE: obese morbidly obese ORIENTATION/CONSCIOUSNESS: Yes awake HENMT: COMMON NORMALS: normocephalic, atraumatic, hearing grossly normal bilaterally and moist oral mucous membranes HEAD & SCALP: normocephalic and atraumatic Eye: COMMON NORMALS: Equal, round and reactive pupils present, EOMs intact bilaterally and conjunctivae normal CONJUNCTIVA: Yes conjunctivae normal PUPIL: Yes Equal, round and reactive pupils present Neck/C-Spine: COMMON NORMALS: full ROM GENERAL: Yes normal visual inspection and Yes trachea midline OTHER: -short, thick neck Resp: COMMON NORMALS: normal respiratory effort, No retractions, No use of accessory muscles and clear to auscultation bilaterally EFFORT & INSPECTION: Yes able to speak in complete sentences, Yes symmetric chest movement and No tachypneic AUSCULTATION: clear to auscultation bilaterally OTHER: -on 1-2 L NC Cardio: COMMON NORMALS: regular rate, regular rhythm, S1 normal heart sound present, S2 normal heart sound present and No murmurs present (Cardio) RATE: regular rate RHYTHM: regular rhythm HEART SOUNDS: S1 normal heart sound present and S2 normal heart sound present OTHER: -hypertensive GI: COMMON NORMALS: Normal to inspection, nondistended, normoactive bowel sounds present, Soft to palpation and non-tender PALPATION: Yes Soft to palpation Extremity: COMMON NORMALS: normal to inspection, full ROM and no clubbing, cyanosis or edema; negative for no pedal edema Neuro: COMMON NORMALS: patient oriented x3, moves all extremities, no focal motor deficits and no sensory deficits noted SENSORIUM/ORIENTATION: Yes alert Psych: COMMON NORMALS: mental status grossly normal, Normal thought process present, cooperative, normal affect and speech normal SPEECH: Yes normal speech THOUGHT PROCESS: Normal thought process present Skin: COMMON NORMALS: no rashes or lesions noted, no jaundice, no petechiae and no mottling GENERAL SKIN EXAM: no rashes or lesions noted Data : 03/26/20 04:10 03/26/20 04:10 Micro: Microbiology 03/24/20 23:33 Blood Culture - Preliminary Blood NEGATIVE TO DATE A&P Assessment and plan (1) COVID-19: -found to be COVID-19 positive, workplace exposure (works in [place] [facility]) -minimal symptoms, need for minimal supplemental oxygen support currently, wean off as tolerated -continue to monitor respiratory status -isolation precautions -minimal elevation in inflammatory markers -imaging consistent with COVID-19 pneumonia Status: Acute (2) Hypertensive urgency: -CT head unremarkable -on nicardipine drip; wean as tolerated -on chlorthalidone, amlodipine, JAGDEEP inhibitor and BB; titrate as needed for optimal BP control -Noted pericardial effusion and bilateral pleural effusions likely secondary to hypertensive urgency -Echo: EF=70%, no RWMA, small to moderate pericardial effusion (no evidence of hemodynamic compromise) -has known hx of HTN and has had issues with pre-eclampsia during -may need to be evaluated for renovascular HTN Status: Acute (3) Acute kidney injury: -likely secondary to elevated BP -continue to monitor renal function, avoid nephrotoxins, renally dose meds -RAMSEY on CKD stage 2; baseline Cr wnl Status: Acute (4) Morbid obesity: -BMI-43 kg/m2 Status: Chronic Additional A&P Information -Chronic smoker; expresses desire to quit smoking -cardiac diet as tolerated -DVT ppx with lovenox -Dispo: home -Code status: FULL code -change to inpatient status due to need for continued BP control, monitoring of respiratory status, RAMSEY Attestations Medical Necessity Statement*: Patient requires hospitalization for continued management of COVID-19 infection with need for continued supplemental oxygen support, acute kidney injury, optimization of blood pressure control. Time Spent in Patient Care: 16 - 35 minutes (>than 50% of time spent in counselling and/or direct pt care on unit) . Coding Level of Care Code Acute Bowling Ball Weigher And Packer for Chg Fwd Exam Comprehensive Diagnoses COVID-19 U07.1 Hypertensive urgency I16.0 Acute kidney injury N17.9 Morbid obesity E66.01
[2020-03-26] MEDS: acetaminophen 325 mg Tablet 650 MG PO (16:00)
[2020-03-27] VITALS (56 sets, daily range): BP systolic 134–179; BP diastolic 74–121; PULSE 61–86; RESP 14–33; TEMP 36.7–37; O2SAT 90–99
[2020-03-27 06:24] LABS: Basophils % 0.8 %; Eosinophils # 0.2 10^3/uL (0.0-0.8); Eosinophils % 3.8 %; Hematocrit 45.3 % (37.0-47.0); Hemoglobin 12.7 g/dL (11.5-15.3); Lymphocytes # 1.6 10^3/uL (0.8-4.8); Lymphocytes % 30.1 %; Mean Corpuscular Hemoglobin 24.3 pg (28.0-34.0); Mean Corpuscular Volume 86.6 fL (81-99); Mean Platelet Volume 12.5 fL (7.4-10.4); Monocytes # 0.4 10^3/uL (0.2-0.9); Neutrophils # 3.01 10^3/uL (1.8-7.7); Neutrophils % 56.9 %; Nucleated Red Blood Cells % 0 %; Red Blood Count 5.23 10^6/uL (4.1-5.3); Red Cell Distribution Width 15.5 % (12.1-15.1); White Blood Count 5.3 10^3/uL (4.0-10.0)
[2020-03-27 07:04] LABS: Anion Gap 15.4 (5-19); Blood Urea Nitrogen 21 mg/dL (6-20); Carbon Dioxide 24 mmol/L (22-29); Chloride 104 mmol/L (98-107); Glomerular Filtration Rate 52.7 mL/min (90-130); Potassium 4.4 mmol/L (3.5-5.1); Sodium 139 mmol/L (136-145)
[2020-03-27 07:05] LABS: Alanine Aminotransferase 22 U/L (0-33); Albumin Level 3.6 g/dL (3.5-5.2); Alkaline Phosphatase 67 IU/L (35-105); Aspartate Amino Transferase 18 U/L (0-32); C Reactive Protein 11.5 mg/L (0.0-4.9); Calcium 8.8 mg/dL (8.5-10.5); Globulin 2.1 g/dL (1.3-4.6); Glucose 93 mg/dL (65-115); Magnesium 2.2 mg/dL (1.7-2.3); Osmolality Calculated 291 mOsm/kg (285-295); Phosphorus 4.8 mg/dL (2.5-4.5); Platelet Count 176 10^3/cmm (130-400); Total Bilirubin 0.3 mg/dL (0.15-1.2); Total Protein 5.7 g/dL (6.6-8.7)
[2020-03-27 07:06] LABS: Slide Review Slide Review Perform
[2020-03-27] MEDS: metoprolol tartrate 50 mg Tablet PO (08:08)
[2020-03-27] MEDS: enoxaparin 40 mg/0.4 mL Syringe SUBCUT (08:08)
[2020-03-27] MEDS: amlodipine 10 mg Tablet PO (08:08)
[2020-03-27] MEDS: lisinopril 10 mg Tablet 20 MG PO ×2 (08:08→17:05)
[2020-03-27] MEDS: chlorthalidone 25 mg Tablet PO (08:08)
[2020-03-27] MEDS: HYDROcodone-acetaminophen 5-325 mg Tablet 1 TAB PO (08:09)
--- NOTE | 2020-03-27 09:09 | P.PN_ITS ---
Subjective Subjective: Interval history: Continues to have some high spikes in BP, afebrile, on 1 L NC. Stable renal function and good urine output. Able to be weaned to room air as the day has progressed, thinks dose of [place] taken earlier this morning for headache may have made her emotional and tearful. Ambulated in the hallway earlier this afternoon. Continues to feel fatigued fairly quickly and easily. Medications: Reviewed: Yes Medication Review Details: Active Medications Generic Name Dose Route Start Last Admin Trade Name Freq PRN Reason Stop Dose Admin Acetaminophen 650 mg 03/25/20 07:26 03/26/20 16:00 Tylenol PO 650 mg Q6H PRN Administration Mild/Mod Pain Or Temp >/= 101 Hydrocodone Bitart /Acetaminophen 1 tab 03/25/20 09:56 03/27/20 08:09 [place] 5-325 Mg PO 1 tab Q4H PRN Administration Moderate Pain or headache Albuterol Sulfate 1 puff 03/25/20 07:26 03/26/20 13:42 Ventolin INHALATION 1 puff Q4H.RESPIRATORY P RN Administration sob Amlodipine Besylat e 10 mg 03/25/20 14:00 03/27/20 08:08 Norvasc PO 10 mg DAILY CON Administration Chlorthalidone 25 mg 03/25/20 08:00 03/27/20 08:08 Thalitone PO 25 mg Q24H CON Administration Enoxaparin Sodium 40 mg 03/27/20 09:00 03/27/20 08:08 Lovenox SUBCUT 40 mg Q24H CON Administration Nicardipine HCl 25 mg/ Sodium 250 mls @ 0 mls/h r 03/25/20 11:30 03/25/20 15:23 Chloride IV Infused .Q0M CON Titration Protocol Per Protocol Nicardipine HCl 50 mg/ Sodium 250 mls @ 0 mls/h r 03/25/20 13:30 03/25/20 22:00 Chloride IV 0 ml/hr .Q0M CON 0 mls/hr Titration Protocol Per Protocol Labetalol HCl 10 mg 03/26/20 23:12 Trandate IVP Q4H PRN HYPERTENSION Lisinopril 20 mg 03/27/20 18:00 Prinivil PO BID CON Metoprolol Tartrat e 75 mg 03/27/20 18:00 Lopressor PO BID CON Ondansetron HCl 4 mg 03/25/20 09:56 Zofran IVP Q6H PRN NAUSEA AND VOMITI NG No Known Allergies Allergy (Verified 03/24/20 23:41) Vitals/I&O/Wt Last Vital Signs Temp 98.2 F 03/27/20 05:00 Pulse 81 03/27/20 08:36 Resp 20 H 03/27/20 08:36 BP 162/106 03/27/20 05:00 Pulse Ox 98 03/27/20 08:36 03/26/20 03/27/20 03/27/20 22:59 06:59 14:59 Intake Total 500 / 500 750 / 1250 Output Total 1800 / 1800 Balance 500 / 500 -1050 / -550 Physical Exam Const: COMMON NORMALS: no acute distress, patient oriented x3 and alert GENERAL APPEARANCE: cooperative and comfortable NUTRITIONAL APPEARANCE: obese morbidly obese ORIENTATION/CONSCIOUSNESS: Yes awake HENMT: COMMON NORMALS: normocephalic, atraumatic, hearing grossly normal bilaterally and moist oral mucous membranes HEAD & SCALP: normocephalic and atraumatic Eye: COMMON NORMALS: Equal, round and reactive pupils present, EOMs intact bilaterally and conjunctivae normal CONJUNCTIVA: Yes conjunctivae normal PUPIL: Yes Equal, round and reactive pupils present Neck/C-Spine: COMMON NORMALS: full ROM GENERAL: Yes normal visual inspection and Yes trachea midline OTHER: -short, thick neck Resp: COMMON NORMALS: normal respiratory effort, No retractions, No use of accessory muscles and clear to auscultation bilaterally EFFORT & INSPECTION: Yes able to speak in complete sentences, Yes symmetric chest movement and No tachypneic AUSCULTATION: clear to auscultation bilaterally OTHER: -on RA Cardio: COMMON NORMALS: regular rate, regular rhythm, S1 normal heart sound present, S2 normal heart sound present and No murmurs present (Cardio) RATE: regular rate RHYTHM: regular rhythm HEART SOUNDS: S1 normal heart sound present and S2 normal heart sound present OTHER: -hypertensive GI: COMMON NORMALS: Normal to inspection, nondistended, normoactive bowel sounds present, Soft to palpation and non-tender PALPATION: Yes Soft to palpation Extremity: COMMON NORMALS: normal to inspection, full ROM and no clubbing, cyanosis or edema; negative for no pedal edema Neuro: COMMON NORMALS: patient oriented x3, moves all extremities, no focal motor deficits and no sensory deficits noted SENSORIUM/ORIENTATION: Yes alert Psych: COMMON NORMALS: mental status grossly normal, Normal thought process present, cooperative, normal affect and speech normal SPEECH: Yes normal speech THOUGHT PROCESS: Normal thought process present Skin: COMMON NORMALS: no rashes or lesions noted, no jaundice, no petechiae and no mottling GENERAL SKIN EXAM: no rashes or lesions noted Data : 03/27/20 04:30 03/27/20 04:30 A&P Assessment and plan (1) COVID-19: -found to be COVID-19 positive, workplace exposure (works in [employer]) -minimal symptoms, need for minimal supplemental oxygen support currently, wean off as tolerated -continue to monitor respiratory status -isolation precautions -minimal elevation in inflammatory markers -imaging consistent with COVID-19 pneumonia Status: Acute (2) Hypertensive urgency: -CT head unremarkable -on nicardipine drip; wean as tolerated -on chlorthalidone, amlodipine, JAGDEEP inhibitor and BB; titrate as needed for optimal BP control -Noted pericardial effusion and bilateral pleural effusions likely secondary to hypertensive urgency -Echo: EF=70%, no RWMA, small to moderate pericardial effusion (no evidence of hemodynamic compromise) -has known hx of HTN and has had issues with pre-eclampsia during -may need to be evaluated for renovascular HTN Status: Acute (3) Acute kidney injury: -likely secondary to elevated BP -continue to monitor renal function, avoid nephrotoxins, renally dose meds -RAMSEY on CKD stage 2; baseline Cr wnl Status: Acute (4) Morbid obesity: -BMI-43 kg/m2 Status: Chronic Additional A&P Information -Chronic smoker; expresses desire to quit smoking -cardiac diet as tolerated -DVT ppx with lovenox -Dispo: home -Code status: FULL code Attestations Medical Necessity Statement*: Patient requires hospitalization for continued management of hypertensive urgency, continued optimization of antihypertensives. Time Spent in Patient Care: 16 - 35 minutes (>than 50% of time spent in counselling and/or direct pt care on unit) . Coding Level of Care Code Acute Resident Services Manager for Chg Fwd Exam Comprehensive Diagnoses COVID-19 U07.1 Hypertensive urgency I16.0 Acute kidney injury N17.9 Morbid obesity E66.01
[2020-03-27] MEDS: labetalol 5 mg/mL SDV 20mL 10 MG IVP ×3 (10:14→18:17)
[2020-03-27] MEDS: metoprolol tartrate 50 mg Tablet 75 MG PO (17:05)
[2020-03-27] MEDS: hyDRALAzine 25 mg Tablet PO (20:54)
[2020-03-28] VITALS (43 sets, daily range): BP systolic 119–180; BP diastolic 64–119; PULSE 43–84; RESP 14–28; TEMP 36.2–37.4; O2SAT 91–100
[2020-03-28] MEDS: acetaminophen 325 mg Tablet 650 MG PO (01:14)
[2020-03-28 05:41] LABS: Basophils % 0.6 %; Eosinophils # 0.2 10^3/uL (0.0-0.8); Eosinophils % 3.5 %; Hematocrit 40.9 % (37.0-47.0); Hemoglobin 11.8 g/dL (11.5-15.3); Lymphocytes % 31.2 %; Mean Corpuscular HGB Conc 28.9 g/dL (30.0-36.0); Mean Corpuscular Hemoglobin 23.9 pg (28.0-34.0); Mean Corpuscular Volume 82.8 fL (81-99); Mean Platelet Volume 10.6 fL (7.4-10.4); Monocytes # 0.5 10^3/uL (0.2-0.9); Monocytes % 7.7 %; Neutrophils # 3.61 10^3/uL (1.8-7.7); Neutrophils % 56.7 %; Nucleated Red Blood Cells % 0 %; Platelet Count 319 10^3/cmm (130-400); Red Blood Count 4.94 10^6/uL (4.1-5.3); Red Cell Distribution Width 15.5 % (12.1-15.1); White Blood Count 6.4 10^3/uL (4.0-10.0)
[2020-03-28] MEDS: labetalol 5 mg/mL SDV 20mL 10 MG IVP ×3 (05:48→20:28)
[2020-03-28 06:25] LABS: Alanine Aminotransferase 23 U/L (0-33); Albumin Level 3.6 g/dL (3.5-5.2); Alkaline Phosphatase 68 IU/L (35-105); Aspartate Amino Transferase 19 U/L (0-32); Blood Urea Nitrogen 21 mg/dL (6-20); C Reactive Protein 5.6 mg/L (0.0-4.9); Calcium 8.8 mg/dL (8.5-10.5); Carbon Dioxide 24 mmol/L (22-29); Chloride 104 mmol/L (98-107); Globulin 2.2 g/dL (1.3-4.6); Glomerular Filtration Rate 48.1 mL/min (90-130); Glucose 90 mg/dL (65-115); Osmolality Calculated 295 mOsm/kg (285-295); Phosphorus 5.5 mg/dL (2.5-4.5); Sodium 141 mmol/L (136-145); Total Bilirubin 0.2 mg/dL (0.15-1.2); Total Protein 5.8 g/dL (6.6-8.7)
[2020-03-28 06:28] LABS: Procalcitonin 0.08 ng/mL (0-0.5)
[2020-03-28 06:35] LABS: Anion Gap 17.2 (5-19); Potassium 4.2 mmol/L (3.5-5.1)
[2020-03-28] MEDS: enoxaparin 40 mg/0.4 mL Syringe SUBCUT (08:01)
[2020-03-28] MEDS: amlodipine 10 mg Tablet PO (08:02)
[2020-03-28] MEDS: hyDRALAzine 25 mg Tablet PO ×3 (08:02→20:26)
[2020-03-28] MEDS: chlorthalidone 25 mg Tablet PO (08:02)
[2020-03-28] MEDS: lisinopril 10 mg Tablet 20 MG PO ×2 (08:02→17:28)
[2020-03-28] MEDS: metoprolol tartrate 50 mg Tablet 75 MG PO ×2 (08:02→17:29)
--- NOTE | 2020-03-28 13:04 | P.PN_ITS ---
Subjective Subjective: Interval history: Eladio reports she is feeling okay. Blood pressure still has quite a bit of fluctuations. Feels less tired than yesterday. Has less coughing. Now on room air oxygen. Medications: Reviewed: Yes Vitals/I&O/Wt Last Vital Signs Temp 99.4 F 03/28/20 11:35 Pulse 72 03/28/20 12:00 Resp 25 H 03/28/20 12:00 BP 119/64 03/28/20 12:00 Pulse Ox 96 03/28/20 12:00 03/27/20 03/28/20 03/28/20 22:59 06:59 14:59 Intake Total 630 / 1290 100 / 1390 860 / 860 Output Total 240 / 240 250 / 250 Balance 390 / 1050 100 / 1150 610 / 610 Physical Exam Narrative: EXAM NARRATIVE: General exam no apparent distress Cardiovascular regular rate and rhythm without murmur Lungs clear Abdomen is soft with positive bowel sounds Extremities no cyanosis clubbing or edema Data : 03/28/20 05:00 03/28/20 05:00 A&P Assessment and plan (1) COVID-19: Overall appears improved Not requiring oxygen Status: Acute (2) Hypertensive urgency: Echo demonstrated normal EF. Small to moderate pericardial effusion was noted CTA demonstrated no pulmonary embolism Off nicardipine drip Currently on Norvasc, JAGDEEP inhibitor, beta-isiah, chlorthalidone with improved control of blood pressure EKG demonstrated lateral T wave inversion, and T wave inversion V4 through 6 It is possible she could have had COVID related cardiac dysfunction. Her BNP was markedly elevated, troponin elevation as well, and pericardial effusion noted. Limited echo tomorrow for EF, recheck pericardial effusion prior to potential discharge home Continue telemetry Status: Acute (3) Acute kidney injury: Chronic kidney disease stage II, with acute kidney injury Check renal ultrasound with duplex Check urinalysis Status: Acute (4) Morbid obesity: -BMI-43 kg/m2 At risk for sleep apnea. Consider outpatient referral by primary care provider Status: Chronic Additional A&P Information Tobacco dependency, counseled DVT prophylaxis with Lovenox Full code Attestations Medical Necessity Statement*: Needs continued hospitalization for close monitoring secondary to cardiac dysfunction with probable relation to COVID Coding Level of Care Code Acute Back Tender Fourdrinier for Chg Fwd Diagnoses COVID-19 U07.1 Hypertensive urgency I16.0 Acute kidney injury N17.9 Morbid obesity E66.01
[2020-03-28 14:58] LABS: Urine Appearance Clear (CLEAR); Urine Color Yellow (Yellow); pH Urine 6 (5-7)
[2020-03-28 14:59] LABS: Add Urine Culture? No; Bacteria Urine TRACE /hpf; Bilirubin Urine Neg (Negative); Blood Urine Neg (Negative); Glucose Urine UA Norm (Normal); Ketones Urine Negative (Negative); Leukocyte Esterase Urine Negative (Negative); Nitrate Urine Negative (Negative); Protein Urine Neg (Negative); Squamous Epithelial Cell Urine 0-4 /hpf (0-5); Urobilinogen Urine Norm (Negative)
[2020-03-29] VITALS (10 sets, daily range): BP systolic 132–170; BP diastolic 92–118; PULSE 69–89; RESP 17–29; TEMP 36.8–37.1; O2SAT 93–97
[2020-03-29] MEDS: HYDROcodone-acetaminophen 5-325 mg Tablet 1 TAB PO (00:28)
--- NOTE | 2020-03-29 07:00 | ECG_ITS ---
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 Measurements Intervals [place] Rate: 69 P: 34 AK: 195 QRS: 33 QRSD: 99 T: 173 QT: 393 QTc: 422 Interpretive Statements SINUS RHYTHM LEFT ATRIAL ENLARGEMENT [-0.15mV P WAVE IN V1/V2] MODERATE T-WAVE ABNORMALITY, CONSIDER LATERAL ISCHEMIA MODERATE T-WAVE ABNORMALITY, CONSIDER INFERIOR ISCHEMIA Compared to ECG 03/25/2020 02:13:12 T-wave abnormality now present Possible ischemia now present Left ventricular hypertrophy no longer present ST (T wave) deviation no longer present Electronically Signed On 04-01-2020 18:19:54 CDT by Radha Dunn M.D. [email or web address]
--- NOTE | 2020-03-29 07:00 | USCV_ITS ---
Eladio Contreras Age: 29 Gender: F : 1990 Exam Date: 03/29/2020 06:30 Ordering Phys: Frank Bey MD Technologist: Ten Romano [place] [facility] [place]: PER EFF BP: 160 / 92 HR: 74 Rhythm: Sinus Technical Quality: Fair MEASUREMENTS (Male / Female) Normal Values 2D ECHO LV Diastolic Diameter PLAX 4.7 cm 4.2 - 5.9 / 3.9 - 5.3 cm LV Systolic Diameter PLAX 3.3 cm IVS Diastolic Thickness 1.3 cm 0.6 - 1.0 / 0.6 - 0.9 cm IVS Systolic Thickness 1.7 cm LVPW Diastolic Thickness 1.3 cm 0.6 - 1.0 / 0.6 - 0.9 cm LVPW Systolic Thickness 2.1 cm LVOT Diameter 2.0 cm LV Ejection Fraction 2D Teich 57.1 % LV Ejection Fraction MOD 2C 46.8 % LV Ejection Fraction 2C AL 47.6 % LA Diameter 4.5 cm LA Width 4.5 cm LA Height 5.9 cm RA Width 4.3 cm RA Height 5.5 cm M-MODE LV Diastolic Diameter MM 6.1 cm 4.2 - 5.9 / 3.9 - 5.3 cm LV Systolic Diameter MM 4.3 cm LV Ejection Fraction MM Teich 55.9 % IVS Diastolic Thickness MM 1.5 cm 0.6 - 1.0 / 0.6 - 0.9 cm IVS Systolic Thickness MM 2.0 cm LVPW Diastolic Thickness MM 1.5 cm 0.6 - 1.0 / 0.6 - 0.9 cm LVPW Systolic Thickness MM 2.2 cm RV Diastolic Diameter MM 2.7 cm Aortic Annulus Diameter 3.4 cm LA Ao Ratio MM 1.5 MV E Point Septal Separation 1.0 cm FINDINGS Left Ventricle Limited quality echocardiogram. Grossly LV systolic function is normal. Right Ventricle The right ventricle is normal in size and function. Right Atrium The right atrium is normal in size. Left Atrium The left atrium is normal in size. Mitral Valve Structurally normal mitral valve. Aortic Valve Not well visualized. Tricuspid Valve Grossly normal. Pulmonic Valve Not visualized. Pericardium There is a small pericardial effusion noted. Aorta Normal ascending aorta dimension. CONCLUSIONS This is a limited echocardiogram to assess pericardial effusion. Grossly LV systolic function is normal. A small pericardial effusion is noted. Compared to prior echo from 03/25/2020, no significant changes are noted. Elias Reid MD (Electronically Signed) Final Date: 29 March 2020 09:23 S
--- NOTE | 2020-03-29 07:00 | USCV_ITS ---
Eladio Contreras Age: 29 Gender: F : 1990 Exam Date: 03/29/2020 06:38 Ordering Phys: Frank Bey MD Technologist: Ten Romano [place] [facility] [place]ication: UNCONTROLLED HTN Aortic Velocity @ SMA (cm/s) 107 RIGHT KIDNEY LEFT KIDNEY Velocity (cm/s) Velocity (cm/s) Sys/Bailey Sys/Bailey Resistive Index Resistive Index 69.3 / 26.8 0.61 Proximal Renal Artery 127.4 / 47.9 0.62 72.1 / 25.7 0.64 Mid Renal Artery 125.8 / 46.8 0.63 100.2 / 32.4 0.68 Distal Renal Artery 82.6 / 32.1 0.61 81.5 / 24.5 0.70 Hilar 92.7 / 26.6 0.71 52.4 / 13.8 0.74 Upper Pole 73.5 / 24.8 0.66 36.5 / 9.0 0.75 Mid Pole 59.7 / 41.8 0.30 38.3 / 12.5 0.67 Lower Pole 54.7 / 14.2 0.74 0.90 Renal Aortic Ratio 1.19 Accleration Index (cm/sec2) 996.00 Hilar 968.00 836.00 Upper Pole 1503.0 0 407.00 Mid Pole 1200.0 0 577.00 Lower Pole 909.00 110.1 Kidney Length (mm) 110.1 FINDINGS Normal Doppler flow velocities. Normal Doppler flow ratios. Near normal resistive indicis Normal kidney dimensions CONCLUSIONS No evidence of any significant renal artery stenosis, based on the above findings. Normal kidney dimensions Dr Lakhwinder Padilla MD [facility] (Electronically Signed) Final Date: 29 March 2020 10:46 S
[2020-03-29] MEDS: hyDRALAzine 25 mg Tablet PO (08:20)
[2020-03-29] MEDS: amlodipine 10 mg Tablet PO (08:20)
[2020-03-29] MEDS: enoxaparin 40 mg/0.4 mL Syringe SUBCUT (08:20)
[2020-03-29] MEDS: chlorthalidone 25 mg Tablet PO (08:20)
[2020-03-29] MEDS: lisinopril 10 mg Tablet 20 MG PO (08:20)
[2020-03-29] MEDS: metoprolol tartrate 50 mg Tablet 75 MG PO (08:44)
[2020-03-29] MEDS: diphenhydrAMINE 25 mg Capsule PO (08:48)
[2020-03-29] MEDS: metoprolol tartrate 25 mg Tablet PO (09:57)
--- NOTE | 2020-03-29 10:29 | PM.DCS ---
Discharge Providers Date of Admission: 03/26/20 14:44 Date of Discharge: March 29, 2020 Attending Provider at Admission: Josh Adan MD Attending Provider at Discharge: Frank Bey MD Diagnoses at Discharge Discharge Diagnosis (1) COVID-19: Status: Acute Problem details: Did not receive antiviral, or steroids (2) Hypertensive urgency: Status: Acute Problem details: Resolved. (3) Acute kidney injury: Status: Acute Problem details: Likely has underlying chronic kidney disease stage II (4) Morbid obesity: Status: Chronic Reason for Visit Reason for Visit: +COVID (IN COVID TRIAGE ROOM) Hospital Course Hospital Course: Eladio is a 29-year-old female with history of hypertension not currently taking any treatment who presented to the hospital on March 25 with fatigue, shortness of breath. She had a positive COVID test for 5 days prior to admission. Here at the hospital she had markedly elevated blood pressure was like noticed with hypertensive emergency and placed on the cart appearing. Initial echocardiogram demonstrated moderate pericardial effusion. Chest x-ray demonstrated mild bilateral effusions and CTA chest demonstrated no pulmonary embolism. Over the balance of her hospital stay blood pressure medication was adjusted. She was taken off nicardipine. She never received dexamethasone or antiviral. She did not require oxygen. At discharge her blood pressure was 134/92. Renal artery duplex preliminary was negative for stenosis. Repeat echocardiogram demonstrated small pericardial effusion, no evidence of tamponade, normal EF. She did have some itching in her hands, and feet thought to be secondary to do hydralazine that was started on the . This was discontinued and metoprolol increased. Physical Exam Narrative: EXAM NARRATIVE: General exam is no apparent distress Cardiovascular regular rate and rhythm without murmur Lungs clear Abdomen is soft with positive bowel sounds Extremities no cyanosis clubbing or edema Discharge Data Data Completed and Pending: Completed Studies During Hospitalization Category Date Time Status CT angio chest PE protcl [id number] Stat Cat Scan 03/25/20 00:[address] head wo con* 7 0450 Urgent Cat Scan 03/24/20 22:52 Completed XR chest 1V zuleyma ble [id number] Stat Exams 03/24/20 21:17 Completed CV echo complete* [id number] Routine Ultrasound 03/25/20 07:26 Completed CV echo limited 9 4286 Routine Ultrasound 03/29/20 07:00 Completed Pending at discharge Category Date Time Status Blood Culture Sta t Lab 03/24/20 23:33 Results CV renal doppler [id number] Routine Ultrasound 03/29/20 07:00 Taken Labs from last 24 hours 03/28/20 14:30 Urine Color Yellow Urine Appearance Clear Urine pH 6 Ur Specific Gravit y 1.010 Urine Protein Neg Urine Glucose (UA) Norm Urine Ketones Negative Urine Blood Neg Urine Nitrate Negative Urine Bilirubin Neg Urine Urobilinogen Norm Ur Leukocyte Alyson ase Negative Urine RBC None Urine WBC None Ur Squamous Epith Cells 0-4 H Amorphous Sediment Not Reportable Urine Bacteria Trace Vitals: Last Vital Signs Temp 98.7 F 03/29/20 07:46 Pulse 89 03/29/20 09:00 Resp 18 03/29/20 09:00 BP 134/92 03/29/20 09:00 Pulse Ox 94 03/29/20 10:14 Discharge Plan Discharge Patient Disposition: Home Condition: Stable Prescriptions: New metoprolol tartrate 50 mg Tablet 100 mg PO BID Qty: 60 RF: 0 chlorthalidone 25 mg Tablet 25 mg PO Q24H Qty: 30 RF: 0 amlodipine 10 mg Tablet 10 mg PO DAILY Qty: 30 RF: 0 lisinopril 20 mg tablet 20 mg PO BID Qty: 60 RF: 0 Discharge Orders: Discharge Order (Routine); Ordered 03/29/20 Ordered By: Frank Bey Referrals: Sarah Hudson MD [Referring] - 1-3 days (By telehealth) Ce Grimaldo MD [Family Provider] - Discharge Diet: Cardiac Discharge Activity: Increase activity as tolerated Activity Restrictions/Additional Instructions: Follow-up with primary care provider 2 to 3 days by telehealth Return for any concerns Note the urine quarantine for 10 days after start of symptoms of Covid 19. Discharge Attestations Time Spent in Discharge Care*: greater than 30 min Quality Metrics Clinical Quality Measures During this hospital stay, did patient experience: None Coding Level of Care Code Acute Machine Clipper for g Fwd Diagnoses COVID-19 U07.1 Hypertensive urgency I16.0 Acute kidney injury N17.9 Morbid obesity E66.01
--- NOTE | 2020-03-31 16:28 | PC.SOCIAL ---
Patient called post discharge. She indicates she had a visit with Dr Hudson today. Lab work was ordered. Her skin is purplish in color. She indicates she is not short of breath. She later checked her O2 and was 90% on RA. We discussed if she is idle and sats drop below 90% she will want to notify Dr Hudson. We also discussed if up moving about and O2 sats drop in 80's she will need to reach out to PCP. If becomes significantly short of breath will need to call 911. She does indicate continues to be pretty weak. We have reviewed her medications. She did get them and we discussed importance of monitoring BP and HR twice a day for now and to keep a log. If BP is running below 90 on the systolic top number review with PCP especially if weak and dizzy. She verbalized understanding. 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 We discussed Plasma donation and she does not think she can donate makes her uneasy. Patient was advised to do deep breathing exercises and if staying idle to do arm an leg exercises while sitting to prevent clots. She verbalized understanding. We discussed good hand hygiene and to wear mask once going out in public. All questions were answered and she was advised to call here or PCP if any questions. Dr Hudson should be following up on lab results.
== END 2020-03-29 11:50 | disposition home or self-care (01) | DRG 304 ==
LOC: ER 03-25 02:27 → ICU 03-25 07:29
PROVIDERS: Emergency Medicine; Family Medicine; Physician Assistant; Admitting Provider Family Medicine; Family Provider Family Medicine; Visit Provider Internal Medicine
DX: I16.0 Hypertensive urgency (principal); U07.1 COVID-19; J12.89 Other viral pneumonia; Z68.41 Body mass index [BMI] 40.0-44.9, adult; N17.9 Acute kidney failure, unspecified; I12.9 Hypertensive chronic kidney disease with stage 1 through stage 4 chronic kidney disease, or unspecified chronic kidney disease; N18.2 Chronic kidney disease, stage 2 (mild); E66.01 Morbid (severe) obesity due to excess calories; F17.210 Nicotine dependence, cigarettes, uncomplicated
CPT/HCPCS: 12345; 36415; 36600; 70450; 71045; 71275; 80053; 80061; 81001; 82728; 82803; 83036; 83605; 83735; 83880; 84100; 84145; 84443; 84484; 84703; 85025; 85378; 85384; 86140; 87040; 93005; 93306; 93308; 93975; 94640; 96372; 96375; 99284; G0378; J1650; J3490; J3535; J7030; J7040; J7050; Q9967

== ENCOUNTER 2020-03-31 14:51 | Outpatient (CLI) | payer OTHER, SELFPAY ==
[2020-03-31 15:30] LABS: Basophils % 0.5 %; Eosinophils # 0.1 10^3/uL (0.0-0.8); Eosinophils % 1.8 %; Hematocrit 48.9 % (37.0-47.0); Hemoglobin 14.4 g/dL (11.5-15.3); Lymphocytes # 2.9 10^3/uL (0.8-4.8); Mean Corpuscular HGB Conc 29.4 g/dL (30.0-36.0); Mean Corpuscular Volume 81.5 fL (81-99); Mean Platelet Volume 10.8 fL (7.4-10.4); Monocytes # 0.6 10^3/uL (0.2-0.9); Neutrophils # 3.73 10^3/uL (1.8-7.7); Neutrophils % 50.6 %; Nucleated Red Blood Cells % 0 %; Platelet Count 388 10^3/cmm (130-400); Red Cell Distribution Width 15.1 % (12.1-15.1); White Blood Count 7.4 10^3/uL (4.0-10.0)
[2020-03-31 16:12] LABS: Alanine Aminotransferase 41 U/L (0-33); Albumin Level 4.1 g/dL (3.5-5.2); Alkaline Phosphatase 85 IU/L (35-105); Anion Gap 16.1 (5-19); Aspartate Amino Transferase 31 U/L (0-32); Blood Urea Nitrogen 34 mg/dL (6-20); Calcium 9.7 mg/dL (8.5-10.5); Carbon Dioxide 23 mmol/L (22-29); Chloride 105 mmol/L (98-107); Globulin 3.2 g/dL (1.3-4.6); Glucose 130 mg/dL (65-115); Osmolality Calculated 299 mOsm/kg (285-295); Potassium 4.1 mmol/L (3.5-5.1); Sodium 140 mmol/L (136-145); Total Bilirubin 0.2 mg/dL (0.15-1.2); Total Protein 7.3 g/dL (6.6-8.7)
[2020-04-01 15:38] LABS: Erythrocyte Sedimentation Rate 10 mm/hr (0-15)
[2020-04-01 15:45] LABS: C Reactive Protein 4.7 mg/L (0.0-4.9); Creatine Phosphokinase 37 U/L (26-192)
== END 2020-03-31 14:52 | disposition home or self-care (01) ==
LOC: LAB 14:59
PROVIDERS: Family Provider Family Medicine; Visit Provider Nurse Practitioner Family
DX: R61 Generalized hyperhidrosis (principal); U07.1 COVID-19
CPT/HCPCS: 36415; 80053; 82550; 85025; 85651; 86140

== ENCOUNTER → 2021-07-10 13:10 | Outpatient (BNVA) | payer OTHER, SELFPAY | PROVIDERS: PCP Internal Medicine; Visit Provider Psychiatry & Neurology Psychiatry | DX: F41.1 Generalized anxiety disorder (principal) | CPT/HCPCS: 80061; 83036; 83721 ==

== ENCOUNTER → 2021-09-19 10:15 | Outpatient (BNVA) | payer MEDICAID, SELFPAY ==
[2021-07-25 16:27] VITALS: BMI 45.1
== END ==
PROVIDERS: PCP Internal Medicine; Visit Provider Surgery
DX: R22.0 Localized swelling, mass and lump, head (principal); F17.210 Nicotine dependence, cigarettes, uncomplicated
CPT/HCPCS: 99204

== ENCOUNTER 2021-09-25 07:31 | Day surgery (SDC) | payer MEDICAID, SELFPAY ==
[2021-07-25 16:27] VITALS: BMI 45.1
[2021-09-25] VITALS (13 sets, daily range): BP systolic 165–223; BP diastolic 90–139; PULSE 60–80; RESP 18–22; TEMP 36.4–36.6; O2SAT 97–100
--- NOTE | 2021-09-25 07:46 | W.PM.OPSFHP ---
Same Day Surgery H&P Indication for Procedure/HPI DATE OF PROCEDURE: September 25, 2021 CHIEF COMPLAINT/INDICATIONFOR SURGICAL PROCEDURE: excision scalp masses PREOP DIAGNOSIS: Multiple scalp masses PLANNED PROCEDURE: Operation Date: 09/25/21 09:10 Proposed Procedures p Excision of scalp mass x4 63241/R22.0(Not Applicable) - Ra Taylro MD Medications/Allergies* Home Medications Medication Instructions Recorded Confirmed Type sertraline 50 mg tablet 50 mg PO DAILY 12/05/20 09/22/21 History amlodipine 5 mg tablet 5 mg PO DAILY 09/19/21 09/22/21 History atorvastatin 20 mg tablet 20 mg PO DAILY 09/19/21 09/22/21 History esomeprazole magnesium 20 mg 20 mg PO DAILY 09/19/21 09/22/21 History capsule,delayed release (Nexium) omega-3 fatty acids 1,000 mg 1,000 mg PO DAILY 09/19/21 09/22/21 History capsule rivaroxaban 10 mg tablet (Xarelto) 10 mg PO DAILY 09/19/21 09/22/21 History spironolactone 25 mg tablet 25 mg PO DAILY 09/19/21 09/22/21 History metoprolol tartrate 50 mg tablet 50 mg PO BID 09/22/21 09/22/21 History Allergies/Adverse Reactions Allergy/AdvReac Type Severity Reaction Status Date / Time vitamin c Allergy Severe Fever, Uncoded 09/25/21 07:45 Stomach Cramps, Vomit Pertinent History/Comorbid Conditions* Medical History (Updated 09/19/21 @ 10:41 by Ra Taylor MD) COVID-19 Did not receive antiviral, or steroids History of pre-eclampsia Hypertension Psychiatric care Surgical History (Updated 09/19/21 @ 10:41 by Ra Taylor MD) Status post right inguinal hernia repair Family History (Updated 03/25/20 @ 02:21 by Josh Adan MD) CAD (coronary artery disease) Social History Smoking and tobacco status: current every day smoker cigarettes Second hand smoke exposure: No Alcohol intake: never Lives independently: Yes Household members: spouse and children Marital status: Pertinent Exam Findings alert, oriented x 3 and regular rate & rhythm Recommendations Surgery/Procedure today Coding Level of Care Code Acute 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
[2021-09-25] MEDS: sodium chloride 0.9% 1,000 ML 30 ML IV (08:08)
--- NOTE | 2021-09-25 08:11 | ANES.PREANE2 ---
Pre-Anesthetic Assessment Height/Weight: Height 1.78 m Temp Pulse Resp BP Pulse Ox 97.9 F 60 18 204/108 97 09/25/21 07:52 09/25/21 07:52 09/25/21 07:52 09/25/21 07:52 09/25/21 07:52 Preop Diagnosis: Multiple scalp masses Operation Date: 09/25/21 09:10 Proposed Procedures p Excision of scalp mass x4 31514/R22.0(Not Applicable) - Ra Taylor MD Familial anesthetic complications: None Was Beta Shannon taken within 24 hours: Yes Was Clonidine taken within 24 hours: N/A Last intake: Intake Last Liquid Date 09/24/21 Last Liquid Time 18:30 Last Solid Date 09/24/21 Last Solid Time 18:30 Social No alcohol and No tobacco Exam alert, oriented x 3, clear to auscultation bilaterally and regular rate & rhythm Airway Submandibular: within normal limits Cervical ROM: within normal limits Mallampati: Class II Dentition: full CV/HEM Hypertension (Poorly controlled) anticoagulation GI Gastroesophageal Reflux Disease Metabolic Hyperlipidemia and Morbid Obesity Anesthetic Plan ASA status: 3 Anesthesia: General Medications/Allergies Home Medications Medication Instructions Recorded Confirmed Last Taken Type sertraline 50 mg tablet 50 mg PO DAILY 12/05/20 09/25/21 09/25/21 07:00 History amlodipine 5 mg tablet 5 mg PO DAILY 09/19/21 09/25/21 09/24/21 History atorvastatin 20 mg tablet 20 mg PO DAILY 09/19/21 09/25/21 09/24/21 History esomeprazole magnesium 20 mg 20 mg PO DAILY 09/19/21 09/25/21 09/24/21 History capsule,delayed release (Nexium) omega-3 fatty acids 1,000 mg 1,000 mg PO DAILY 09/19/21 09/25/21 09/24/21 History capsule rivaroxaban 10 mg tablet (Xarelto) 10 mg PO DAILY 09/19/21 09/25/21 09/21/21 History spironolactone 25 mg tablet 25 mg PO DAILY 09/19/21 09/25/21 09/24/21 History metoprolol tartrate 50 mg tablet 50 mg PO BID 09/22/21 09/25/21 09/25/21 07:00 History Allergies Allergy/AdvReac Type Severity Reaction Status Date / Time vitamin c Allergy Severe Fever, Uncoded 09/25/21 07:45 Stomach Cramps, Vomit Current Medications Generic Name Dose Route Start Last Admin Trade Name Doron PRN Reason Stop Dose Admin Sodium Chloride 1,000 mls @ 30 mls/hr 09/25/21 07:45 09/25/21 08:08 Sodium Chloride 0.9% IV 09/26/21 07:44 30 mls/hr .Q24H CON Administration PFSH Anesthesia Medical History (Updated 09/19/21 @ 10:41 by Ra Taylor MD) COVID-19 Did not receive antiviral, or steroids History of pre-eclampsia Hypertension Psychiatric care Surgical History (Updated 09/19/21 @ 10:41 by Ra Taylor MD) Status post right inguinal hernia repair Family History Other CAD (coronary artery disease) Social History Smoking and tobacco status: current every day smoker cigarettes Second hand smoke exposure: No Alcohol intake: never Lives independently: Yes Household members: spouse and children Marital status: Data Anesthesia Cardiac Studies: Echocardiogram Limited Views 03/29/20 Echocardiogram Ultrasound 03/25/20
[2021-09-25 08:14] LABS: OR HCG Qualitative Urine Negative (Negative)
[2021-09-25] MEDS: HYDROmorphone 1 mg/mL INJ 1 mL 0.5 MG IVP ×2 (08:25→10:10)
[2021-09-25] MEDS: lidocaine 2% INJ 20 mL INJECTION (09:20)
[2021-09-25] MEDS: neomycin-poly-bacitracin oint 28 gm 1 APPLIC TOPICAL (09:36)
--- NOTE | 2021-09-25 09:45 | P.OP_ITS ---
Operative Report Date of procedure: September 25, 2021 Pre-op diagnosis: Sebaceous cyst on scalp x4 Post-op findings: 4 separate sebaceous cysts removed with 3 measuring 2 x 2 cm and fourth 1 measuring 1 x 1 cm Procedure done: Excision of sebaceous cyst on scalp x4 Specimens removed/disposition: Sebaceous cyst scalp Surgeon: Ra Taylor Anesthesia: MAC and Local Condition: stable Disposition: PACU Procedure: The patient was taken to the operating room and placed under MAC after IV antibiotic had been administered. The 4 sebaceous cyst on the scalp had been previously marked, hair was clipped and the area was prepped with Betadine. 1% lidocaine with 0.5% Marcaine was infiltrated around the sebaceous cyst. Using 15 blade a 2 cm incision was made on the anterior cyst on the scalp m easuring 2 x 2 cm and the cyst was dissected free from the surrounding subcutaneous tissue using 15 blade. Hemostasis was ensured with cautery and skin was closed using 3-0 Prolene suture. Using 15 blade a 2 cm incision was made on the posterior cyst on the scalp measuring 2 x 2 cm and the cyst was dissected free from the surrounding subcutaneous tissue using 15 blade. Hemostasis was ensured with cautery and skin was closed using 3-0 Prolene suture. Using 15 blade a 2 cm incision was made on the cyst on the left side of the scalp measuring 1 x 1 cm and the cyst was dissected free from the surrounding subcutaneous tissue using 15 blade. Hemostasis was ensured with cautery and skin was closed using 3-0 Prolene suture. Using 15 blade a 2 cm incision was made on the cyst on the right side of the scalp measuring 2 x 2 cm and the cyst was dissected free from the surrounding subcutaneous tissue using 15 blade. Hemostasis was ensured with cautery and skin was closed using 3-0 Prolene suture. The patient was transferred to recovery room in stable condition.
[2021-09-25] MEDS: hyDRALAzine 20 mg/mL INJ 1 mL 10 MG IVP (10:09)
[2021-09-25] MEDS: HYDROcodone-acetaminophen 5-325 mg Tablet 1 TAB PO (10:50)
--- NOTE | 2021-09-25 11:24 | PC.NURSE ---
PATIENTS BLOOD PRESSURE HAS BEEN ELEVATED PRE-OP, INTRA-OP AND POST-OP. PATIENT IS ON SEVERAL BLOOD PRESSURE MEDICATIONS, REPORTS ITS ALWAYS HIGH. ENCOURAGED PATIENT TO GO TO HER PRIMARY CARE PHYSICIAN FOR A FOLLOW-UP
--- NOTE | 2021-09-25 14:09 | ANE.PACU2 ---
Inpatient post-anesthesia follow up: Airway intact: Yes Vital signs: Temperature 97.8 F Pulse Rate 64 Respiratory Rate 18 Blood Pressure 188/90 Pulse Oximetry 98 Oxygen Delivery Me thod Room Air Oxygen Flow Rate 6 Fraction of Inspir ed Oxygen Hydration adequate: Yes Nausea and vomiting: No Pain level: 3 Mental status: Baseline
== END 2021-09-25 11:34 | disposition home or self-care (01) ==
PROVIDERS: PCP Nurse Practitioner Family; Visit Provider Surgery
PROC: (CPT 11426; principal; 2021-09-25 09:00)
DX: D23.4 Other benign neoplasm of skin of scalp and neck (principal); I10 Essential (primary) hypertension; E78.5 Hyperlipidemia, unspecified; E66.01 Morbid (severe) obesity due to excess calories; Z68.41 Body mass index [BMI] 40.0-44.9, adult; Z86.16 Personal history of COVID-19; Z82.49 Family history of ischemic heart disease and other diseases of the circulatory system; F17.210 Nicotine dependence, cigarettes, uncomplicated
CPT/HCPCS: 11426; 81025; 84703; 88307; J0360; J0690; J1170; J2250; J2704; J3010; J3490; J7030

== ENCOUNTER → 2021-10-03 10:35 | Outpatient (BNVA) | payer MEDICAID, SELFPAY ==
[2021-07-25 16:27] VITALS: BMI 45.1
== END ==
PROVIDERS: PCP Nurse Practitioner Family; Visit Provider Surgery
DX: Z98.890 Other specified postprocedural states (principal); Z87.2 Personal history of diseases of the skin and subcutaneous tissue; F17.210 Nicotine dependence, cigarettes, uncomplicated
CPT/HCPCS: 99213

== ENCOUNTER 2021-10-18 08:52 | Outpatient (CLI) | payer MEDICAID, SELFPAY ==
[2021-07-25 16:27] VITALS: BMI 45.1
--- NOTE | 2021-10-18 09:08 | USCV_ITS ---
Eladio Contreras Age: 31 Gender: F : 1990 Exam Date: 10/18/2021 09:30 Ordering Phys: Lizzie Flores NP Technologist: HARLEY [place] [facility] [place]: cardiac arrhytemia BP: 180 / 80 HR: 58 Rhythm: Sinus Technical Quality: Adequate MEASUREMENTS (Male / Female) Normal Values 2D ECHO LV Diastolic Diameter PLAX 4.9 cm 4.2 - 5.9 / 3.9 - 5.3 cm LV Systolic Diameter PLAX 3.0 cm IVS Diastolic Thickness 1.7 cm 0.6 - 1.0 / 0.6 - 0.9 cm IVS Systolic Thickness 2.5 cm LVPW Diastolic Thickness 1.8 cm 0.6 - 1.0 / 0.6 - 0.9 cm LVPW Systolic Thickness 2.2 cm LVOT Diameter 2.0 cm LV Ejection Fraction 2D Teich 69.1 % LV Ejection Fraction MOD 2C 74.0 % LV Ejection Fraction 2C AL 76.4 % LA Diameter 3.7 cm LA Width 4.5 cm LA Height 4.9 cm RA Width 3.3 cm RA Height 4.5 cm Aorta at Sinotubular Diameter 2.7 cm M-MODE Aortic Annulus Diameter 2.8 cm LA Ao Ratio MM 1.3 MV E Point Septal Separation 0.3 cm DOPPLER AV Peak Velocity 126.0 cm/s LVOT Peak Velocity 126.0 cm/s AV Area Cont Eq vti 3.6 cm squared AV Area Cont Eq pk 3.2 cm squared MV Peak Velocity 115.0 cm/s MV Area PHT 3.4 cm squared Mitral E to A Ratio 1.6 MV E' Velocity 47.0 cm/s Mitral E to MV E' Ratio 14.9 Mitral E to LV E' Lateral Ratio 14.4 Mitral E to LV E' Septal Ratio 15.7 TR Peak Velocity 120.2 cm/s TR Peak Gradient 5.8 mmHg TR Mean Velocity 93.3 cm/s TR Mean Gradient 3.6 mmHg TR Velocity Time Integral 27.2 cm TV Peak E Velocity 57.0 cm/s Right Atrial Pressure 3.0 mmHg Pulmonary Artery Systolic Pressu 8.8 mmHg PV Peak Velocity 116.0 cm/s RV Acceleration Time 0.1 s RV Ejection Time 0.4 s RV AcT/ET 0.2 FINDINGS Left Ventricle Normal left ventricular size, systolic function and wall thickness, with no regional wall motion abnormalities. Normal diastolic function. Left ventricular ejection fraction is estimated at 60 %. Right Ventricle Normal right ventricular size and systolic function. Right ventricle not well visualized. Right Atrium The right atrium is normal in size. Left Atrium Mildly increased left atrial size. Mitral Valve Structurally normal mitral valve without significant stenosis or prolapse. There is no mitral regurgitation. Aortic Valve Structurally normal aortic valve without significant sclerosis or stenosis. There is no aortic regurgitation. Tricuspid Valve Structurally normal tricuspid valve without significant stenosis or regurgitation. Pulmonary artery systolic pressure is normal. Pulmonic Valve Pulmonic valve not well visualized. Pericardium Normal pericardium without effusion. Aorta Normal ascending aorta dimension. CONCLUSIONS Normal left ventricular size, systolic function and wall thickness, with no regional wall motion abnormalities. Normal diastolic function. Left ventricular ejection fraction is estimated at 60 %. Mildly increased left atrial size. Dr. Guanaco Martinez MD (Electronically Signed) Final Date: 18 Oct 2021 16:58 S
== END 2021-10-18 08:53 | disposition home or self-care (01) ==
LOC: RAD 08:54
PROVIDERS: PCP Nurse Practitioner Family; Visit Provider Nurse Practitioner Family
DX: I49.9 Cardiac arrhythmia, unspecified (principal)
CPT/HCPCS: 93306